=== PATIENT | female | born 1930 | race Caucasian/White ===

== ENCOUNTER → 2016-04-22 | Outpatient (CLI) | payer OTHER ==
[~2016-04-22] MED LIST: ALBUAER19 INH; AMLO5TAB2 PO; ASPEC81 PO; LOSA50TA6 PO; NTRGSL/4 SL; OXYC-88 PO; SERT50TA PO
[2016-04-22 18:09] LABS: BLOOD UREA NITROGEN 18 mg/dl (7-18); BUN/CREATININE RATIO 18.2 (10-20); CALCIUM 9.3 mg/dl (8.5-10.1); CARBON DIOXIDE 28 mmol/L (21-32); CHLORIDE 106 mmol/L (98-107); GLUCOSE 81 mg/dl (70-99); POTASSIUM 4.5 mmol/L (3.5-5.1); SODIUM 142 mmol/L (136-145)
== END | disposition home or self-care (01) ==
LOC: C.LABMFLN 04-25 13:35
PROVIDERS: ATTEND Family Medicine
DX: R39.15 Urgency of urination (principal); R35.0 Frequency of micturition; R30.0 Dysuria; E55.9 Vitamin D deficiency, unspecified

== ENCOUNTER → 2016-05-16 | Outpatient (CLI) | payer OTHER ==
[2016-05-16 18:41] LABS: URINE APPEARANCE CLEAR (CLEAR); URINE BILIRUBIN NEG (NEG); URINE COLOR DK YELLOW; URINE EPITHELIAL CELL AUTO >30 /lpf (0-5); URINE NITRITE NEG (NEG); URINE SPECIFIC GRAVITY 1.026 (1.000-1.030); UROBILINOGEN NEG (NEG); ZZUR CULT IF INDIC CLEAN CATCH NO
[2016-05-16 18:43] LABS: MANUAL MICROSCOPIC REQUIRED? NO; REVIEW REQ? NO
== END | disposition home or self-care (01) ==
LOC: C.LABMFLN 14:46
PROVIDERS: ATTEND Family Medicine
DX: R30.0 Dysuria (principal)

== ENCOUNTER → 2016-07-21 | Outpatient (CLI) | payer OTHER ==
[2016-07-21 18:10] LABS: URINE APPEARANCE CLEAR (CLEAR); URINE BILIRUBIN NEG (NEG); URINE COLOR YELLOW; URINE NITRITE NEG (NEG); URINE SPECIFIC GRAVITY 1.015 (1.000-1.030); UROBILINOGEN NEG (NEG)
[2016-07-21 18:19] LABS: MANUAL MICROSCOPIC REQUIRED? NO; REVIEW REQ? NO
== END | disposition home or self-care (01) ==
LOC: C.LABMFLN 08:52
PROVIDERS: ATTEND Family Medicine
DX: R30.0 Dysuria (principal)

== ENCOUNTER → 2016-10-06 | Outpatient (CLI) | payer OTHER ==
[2016-10-06 18:08] LABS: BLOOD UREA NITROGEN 20 mg/dl (7-18); BUN/CREATININE RATIO 18.3 (10-20); CALCIUM 9.5 mg/dl (8.5-10.1); CARBON DIOXIDE 30 mmol/L (21-32); CHLORIDE 107 mmol/L (98-107); GLUCOSE 84 mg/dl (70-99); POTASSIUM 4.4 mmol/L (3.5-5.1); SODIUM 142 mmol/L (136-145)
== END | disposition home or self-care (01) ==
LOC: C.LABMFLN 16:03
PROVIDERS: ATTEND Family Medicine
DX: I10 Essential (primary) hypertension (principal)

== ENCOUNTER → 2017-01-06 | Outpatient (CLI) | payer OTHER | END | disposition home or self-care (01) | LOC: C.LABMFLN 12:49 | PROVIDERS: ATTEND Family Medicine | DX: R35.0 Frequency of micturition (principal) ==

== ENCOUNTER → 2017-01-25 | Outpatient (CLI) | payer OTHER ==
[2017-01-25 13:24] LABS: URINE APPEARANCE CLEAR (CLEAR); URINE BILIRUBIN NEG (NEG); URINE COLOR YELLOW; URINE EPITHELIAL CELL AUTO >30 /lpf (0-5); URINE NITRITE NEG (NEG); URINE SPECIFIC GRAVITY 1.014 (1.000-1.030); UROBILINOGEN NEG (NEG)
[2017-01-25 13:30] LABS: BLOOD UREA NITROGEN 32 mg/dl (7-18); BUN/CREATININE RATIO 25.4 (10-20); CALCIUM 8.9 mg/dl (8.5-10.1); CARBON DIOXIDE 26 mmol/L (21-32); CHLORIDE 99 mmol/L (98-107); CREATININE 1.25 mg/dl (0.60-1.20); GLUCOSE 93 mg/dl (70-99); POTASSIUM 3.6 mmol/L (3.5-5.1); SODIUM 134 mmol/L (136-145)
[2017-01-25 13:40] LABS: MANUAL MICROSCOPIC REQUIRED? NO; REVIEW REQ? NO
== END | disposition home or self-care (01) ==
LOC: C.LABMFLN 09:00
PROVIDERS: ATTEND Family Medicine
DX: I10 Essential (primary) hypertension (principal); E55.9 Vitamin D deficiency, unspecified; R35.0 Frequency of micturition; N23 Unspecified renal colic

== ENCOUNTER 2017-04-03 16:06 | Emergency (ER) | payer OTHER ==
[~2017-04-03] VITALS: Ht 149.9 cm; Wt 56.0 kg
[2017-04-03 16:17] VITALS: TEMP 36.9; Ht 149.9 cm; Wt 56.0 kg
[2017-04-03 17:18] LABS: BASO % 0.7 %; BASO ABS # 0.03 K/uL (0-0.2); EOS % 1.8 %; EOS ABS # 0.08 K/uL (0-0.5); HEMATOCRIT 35.7 % (37-47); HEMOGLOBIN 11.7 g/dL (12.0-16.0); LYMPH % 44.1 %; LYMPH ABS # 1.97 K/uL (1.2-3.4); MEAN CELL VOLUME 90.8 fL (80-100); MEAN CORPUSCULAR HEMOGLOBIN 29.8 pg (25-34); MEAN CORPUSCULAR HGB CONC 32.8 g/dl (32-36); MEAN PLATELET VOLUME 11.3 fL (7.4-10.4); MONO % 4.7 %; MONO ABS # 0.21 K/uL (0.11-0.59); NEUT % 48.7 %; NEUT ABS # 2.18 K/uL (1.4-6.5); PLATELET COUNT 169 K/uL (130-400); RED CELL DISTRIBUTION WIDTH CV 13.1 % (11.5-14.5); RED CELL DISTRIBUTION WIDTH SD 43.9 fL (36.4-46.3); WHITE BLOOD COUNT 4.47 K/uL (4.8-10.8)
[2017-04-03 17:41] LABS: CALCIUM 9.3 mg/dl (8.5-10.1); CREATININE 1.36 mg/dl (0.60-1.20); POTASSIUM 4.3 mmol/L (3.5-5.1)
[2017-04-03 17:51] VITALS: PULSE 69; O2SAT 100
--- NOTE | 2017-04-03 17:57 | DIAGNOSTIC IMAGING REPORT ---
L KNEE 3 VIEWS CLINICAL HISTORY: L knee pain COMPARISON: None. DISCUSSION: Postsurgical changes involve the distal femur. The bones are osteopenic. 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 There is chondrocalcinosis. There is an old proximal fibular deformity. There are no acute fractures. There are soft tissue calcifications within the anterior soft tissues of the lower leg. IMPRESSION: 1. Postsurgical changes involve the distal femur 2. Osteopenia 3. Degenerative changes with chondrocalcinosis involving the knee 4. No acute fractures Electronically signed by: Sebastian Dobson M.D. 04/03/2017 5:55 PM Dictated Date/Time: 04/03/2017 5:54 PM
--- NOTE | 2017-04-03 17:58 | DIAGNOSTIC IMAGING REPORT ---
L TIBIA/FIBULA 2 VIEWS ROUTINE CLINICAL HISTORY: L clements leaking fluid COMPARISON: None. DISCUSSION: The bones are osteopenic. There are postsurgical changes involve the distal femur. There is an old fracture involving the distal tibia. There are 2 medial malleolar screws. There is a lateral metallic plate fixating an old distal fibular fracture. There are no acute fractures. There is anterior soft tissue edema. There are anterior soft tissue calcifications, likely representing phleboliths or foci of fat necrosis. IMPRESSION: 1. Old posttraumatic and postsurgical change 2. Anterior soft tissue swelling 3. No acute fractures Electronically signed by: Sebastian Dobson M.D. 04/03/2017 5:57 PM Dictated Date/Time: 04/03/2017 5:56 PM
[2017-04-03] MEDS ORDERED: DEXL60CA4 PO (18:25)
--- NOTE | 2017-04-03 18:56 | DIAGNOSTIC IMAGING REPORT ---
ULTRASOUND L VENOUS DOPP LOWER EXT UNILAT CLINICAL HISTORY: Left lower extremity edema COMPARISON STUDY: No previous studies for comparison. FINDINGS: Real-time and color flow Doppler imaging were performed. Flow was seen within the femoral, popliteal and calf veins with no intraluminal thrombus demonstrated. The saphenous vein is patent. There is left lower extremity edema IMPRESSION: No evidence of left lower extremity DVT. Electronically signed by: Sebastian Dobson M.D. 04/03/2017 6:54 PM Dictated Date/Time: 04/03/2017 6:54 PM
[2017-04-03 19:39] VITALS: BP 190/104
--- NOTE | 2017-04-03 22:32 | EMERGENCY ROOM VISIT NOTE ---
History Report prepared by Mira: Jorge Calle Under the Supervision of: Dr. Phil Chacon D.O. First contact with patient: 16:24 Chief Complaint: LEG PAIN,LEG INJURY Stated Complaint: LT LEG W/METAL IN AND SCREWS, FLUID LEAKING OUT History of Present Illness The patient is an 86 year old female who presents to the Emergency Room with complaints of intermittent leakage from her left leg for the past two nights. The patient states that she woke up the last two nights with a wet spot on the bed near her leg. The patient notes that she has metal in her legs after breaking her leg after falling. Pt denies headache, change in vision, cough, runny nose, redness, leg pain, leg swelling, weakness, numbness, abdominal pain , fevers, chest pain, shortness of breath, nausea, vomiting, diarrhea, pain with urination, and melena. Source of History: patient Onset: past two nights Position: leg (left) Quality: other (leakage) Timing: intermittent Associated Symptoms: No fevers, No cough, No chest pain, No SOB, No abdominal pain Review of Systems See HPI for pertinent positives & negatives. A total of 10 systems reviewed and were otherwise negative. Past Medical & Surgical Medical Problems: (1) HTN (hypertension) Family History FH: HTN (hypertension) FH: cancer FH: diabetes mellitus FH: gallbladder disease FH: heart disease Social History Smoking Status: Former Smoker Alcohol Use: none Marital Status: Occupation Status: retired Current/Historical Medications Scheduled Aspirin Enteric Coated (Ecotrin Or Generic *), 81 MG PO DAILY Dexlansoprazole (Dexilant), 60 MG PO DAILY Losartan Potassium (Cozaar), 50 MG PO DAILY Nitroglycerin (Nitrostat), 0.4 MG SL PRN Sertraline (Zoloft), 50 MG PO DAILY Scheduled PRN Albuterol Inhaler (Ventolin Inhaler), 2 PUFFS INH QID PRN Oxycodone/Acetaminophen 10MG/325MG (Oxycodone/Acetaminophen 10MG/325MG), 1 TAB PO Q4H PRN Allergies Coded Allergies: Erythromycin (Verified Allergy, Severe, TONGUE SWELLS, 04/03/17) Chlorpheniramine (Verified Allergy, Mild, UNKNOWN, 04/03/17) Replaces HYDROCODONE/P Phenylephrine (Verified Allergy, Mild, UNKNOWN, 04/03/17) Replaces HYDROCODONE/P Codeine (Verified Allergy, Unknown, TONGUE SWELLS, 04/03/17) Iodinated Contrast Media (Verified Adverse Reaction, Severe, IRREGULAR HEART RATE, 04/03/17) Physical Exam Vital Signs Date Time Temp Pulse Resp B/P (MAP) Pulse Ox O2 Delivery O2 Flow Rate FiO2 04/03/17 19:39 190/104 04/03/17 17:51 69 18 193/84 100 Room Air 04/03/17 16:17 36.9 89 16 183/99 97 Room Air Physical Exam GENERAL: Sitting up in bed, alert, well appearing, well nourished, no distress, non-toxic EYE EXAM: normal conjunctiva. OROPHARYNX: no exudate, no erythema, lips, buccal mucosa, and tongue normal and mucous membranes are moist NECK: supple, no nuchal rigidity, no adenopathy, non-tender LUNGS: Clear to auscultation. Normal chest wall mechanics HEART: no murmurs, S1 normal and S2 normal ABDOMEN: abdomen soft, non-tender, normo-active bowel sounds, no masses, no rebound or guarding. BACK: Back is symmetrical on inspection and there is no deformity, no midline tenderness, no CVA tenderness. SKIN: no rashes and no bruising UPPER EXTREMITIES: upper extremities are grossly normal. LOWER EXTREMITIES: Calves are equal bilaterally. There is a 1cm open laceration seeping clear fluid 6cm cephalad from the ankle. No pitting edema. NEURO EXAM: Normal sensorium, cranial nerves II-XII grossly intact, normal speech, no gross weakness of arms, no gross weakness of legs. Medical Decision & Procedures ER Provider Diagnostic Interpretation: Radiology results as stated below per my review and the radiologist's interpretation: L TIBIA/FIBULA 2 VIEWS ROUTINE CLINICAL HISTORY: L clements leaking fluid COMPARISON: None. DISCUSSION: The bones are osteopenic. There are postsurgical changes involve the distal femur. There is an old fracture involving the distal tibia. There are 2 medial malleolar screws. There is a lateral metallic plate fixating an old distal fibular fracture. There are no acute fractures. There is anterior soft tissue edema. There are anterior soft tissue calcifications, likely representing phleboliths or foci of fat necrosis. IMPRESSION: 1. Old posttraumatic and postsurgical change 2. Anterior soft tissue swelling 3. No acute fractures Electronically signed by: Sebastian Dobson M.D. 04/03/2017 5:57 PM Dictated Date/Time: 04/03/2017 5:56 PM L KNEE 3 VIEWS CLINICAL HISTORY: L knee pain COMPARISON: None. DISCUSSION: Postsurgical changes involve the distal femur. The bones are osteopenic. 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 There is chondrocalcinosis. There is an old proximal fibular deformity. There are no acute fractures. There are soft tissue calcifications within the anterior soft tissues of the lower leg. IMPRESSION: 1. Postsurgical changes involve the distal femur 2. Osteopenia 3. Degenerative changes with chondrocalcinosis involving the knee 4. No acute fractures Electronically signed by: Sebastian Dobson M.D. 04/03/2017 5:55 PM Dictated Date/Time: 04/03/2017 5:54 PM ULTRASOUND L VENOUS DOPP LOWER EXT UNILAT CLINICAL HISTORY: Left lower extremity edema COMPARISON STUDY: No previous studies for comparison. FINDINGS: Real-time and color flow Doppler imaging were performed. Flow was seen within the femoral, popliteal and calf veins with no intraluminal thrombus demonstrated. The saphenous vein is patent. There is left lower extremity edema IMPRESSION: No evidence of left lower extremity DVT. Electronically signed by: Sebastian Dobson M.D. 04/03/2017 6:54 PM Dictated Date/Time: 04/03/2017 6:54 PM Laboratory Results 04/03/17 17:00 Red Blood Count 3.93, Mean Corpuscular Volume 90.8, Mean Corpuscular Hemoglobin 29.8, Mean Corpuscular Hemoglobin Concent 32.8, Mean Platelet Volume 11.3, Neutrophils (%) (Auto) 48.7, Lymphocytes (%) (Auto) 44.1, Monocytes (%) (Auto) 4.7, Eosinophils (%) (Auto) 1.8, Basophils (%) (Auto) 0.7, Neutrophils # (Auto) 2.18, Lymphocytes # (Auto) 1.97, Monocytes # (Auto) 0.21, Eosinophils # (Auto) 0.08, Basophils # (Auto) 0.03 04/03/17 17:00 Test 04/03/17 17:00 White Blood Count 4.47 K/uL (4.8-10.8) Red Blood Count 3.93 M/uL (4.2-5.4) Hemoglobin 11.7 g/dL (12.0-16.0) Hematocrit 35.7 % (37-47) Mean Corpuscular Volume 90.8 fL (80-100) Mean Corpuscular Hemoglobin 29.8 pg (25-34) Mean Corpuscular Hemoglobin Concent 32.8 g/dl (32-36) Platelet Count 169 K/uL (130-400) Mean Platelet Volume 11.3 fL (7.4-10.4) Neutrophils (%) (Auto) 48.7 % Lymphocytes (%) (Auto) 44.1 % Monocytes (%) (Auto) 4.7 % Eosinophils (%) (Auto) 1.8 % Basophils (%) (Auto) 0.7 % Neutrophils # (Auto) 2.18 K/uL (1.4-6.5) Lymphocytes # (Auto) 1.97 K/uL (1.2-3.4) Monocytes # (Auto) 0.21 K/uL (0.11-0.59) Eosinophils # (Auto) 0.08 K/uL (0-0.5) Basophils # (Auto) 0.03 K/uL (0-0.2) RDW Standard Deviation 43.9 fL (36.4-46.3) RDW Coefficient of Variation 13.1 % (11.5-14.5) Immature Granulocyte % (Auto) 0.0 % Immature Granulocyte # (Auto) 0.00 K/uL (0.00-0.02) Anion Gap 5.0 mmol/L (3-11) Est Creatinine Clear Calc Drug Dose 23.5 ml/min Estimated GFR () 41.3 Estimated GFR (Non- 35.6 BUN/Creatinine Ratio 14.1 (10-20) Calcium Level 9.3 mg/dl (8.5-10.1) Pro-B-Type Natriuretic Peptide 1576 pg/ml (0-1800) Laboratory results per my review. ECG Indication: other (leg swelling) Rate (beats per minute): 72 Rhythm: sinus rhythm Findings: Q waves (Septal), no ectopy, other (poor baseline in V6) Change: Patient's EKG interpreted by me. ED Course ED COURSE: Vital signs were reviewed and showed hypertension The patients medical record was reviewed The above diagnostic studies were performed and reviewed. ED treatments and interventions as stated above. 1624: The patient was evaluated in room A2. A complete history and physical examination was performed. 1751: I reevaluated the patient, and she is doing well. 1904: Upon reevaluation, the patient is doing well.I discussed my findings with the patient and she understands and agrees with the treatment plan. Based on the patients age, coexisting illnesses, exam and lab findings the decision to treat as an outpatient was made. The patient remained stable while under my care. The patient appeared well at the time of discharge. Medical Decision Differential diagnosis: Etiologies such as DVT, musculoskeletal, infection, joint effusion, trauma, lymphedema, idiopathic, CHF, as well as others were entertained. Patient is an 86-year-old female who presents to ER for a clear drainage from her left lower extremity. She has a 1 cm opening on her left distal clements which is oozing clear fluid. No signs of infection. CBC all BMP was unremarkable. BNP was normal. Lungs were clear. Duplex of lower extremity was negative. X- rays of the tibia and knee showed no acute fractures. Patient was updated bedside. She was discharged follow-up PCP as an outpatient. She had absolutely no other complaints to suggest that this could be failure. Discussed with Pt concerning signs and symptoms to watch out for. Pt was instructed to follow up with their PCP and discussed with the patient their option to return to the ED at anytime for persistent or worsening symptoms. The appropriate anticipatory guidance and out-patient management, including indications for return to the emergency department, were explained at length to the patient and understood. Medication Reconcilliation Current Medication List: was personally reviewed by me Blood Pressure Screening Patient's blood pressure: Elevated blood pressure Blood pressure disposition: Referred to PCP Impression Primary Impression: Leg edema, left Scribe Attestation The scribe's documentation has been prepared under my direction and personally reviewed by me in its entirety. I confirm that the note above accurately reflects all work, treatment, procedures, and medical decision making performed by me. Departure Information Dispostion Home / Self-Care Referrals Juan Galloway M.D. (PCP) Forms HOME CARE DOCUMENTATION FORM, IMPORTANT VISIT INFORMATION Patient Instructions ED Leg Swelling Bilateral, My [facility] Additional Instructions Please follow up with your primary care doctor with in the next 24 hours. Any worsening of your symptoms, please return to the ED immediately. This includes any fevers greater than 100.4, worsening pain, chest pain, shortness breath, persistent nausea, vomiting, unable to eat or drink, or any other concerning signs or symptoms from your standpoint. Please follow up with your primary care doctor in the next 24-48 hours as stated above. Please keep dressing in place for the next 24 hours.
== END 2017-04-03 19:42 | disposition home or self-care (01) ==
LOC: C.EDB 16:08 → C.EDA 19:42
DX: R60.0 Localized edema (principal); S81.812A Laceration without foreign body, left lower leg, initial encounter; X58.XXXA Exposure to other specified factors, initial encounter; I10 Essential (primary) hypertension; Z96.89 Presence of other specified functional implants; Z79.82 Long term (current) use of aspirin; Z88.1 Allergy status to other antibiotic agents; Z88.8 Allergy status to other drugs, medicaments and biological substances; Z88.6 Allergy status to analgesic agent; Z91.041 Radiographic dye allergy status; Z82.49 Family history of ischemic heart disease and other diseases of the circulatory system; Z83.3 Family history of diabetes mellitus; Z83.79 Family history of other diseases of the digestive system; Z87.891 Personal history of nicotine dependence

== ENCOUNTER → 2017-04-19 | Outpatient (CLI) | payer OTHER ==
[~2017-04-19] MED LIST changes: -AMLO5TAB2 PO; +DEXL60CA4 PO
== END | disposition home or self-care (01) ==
LOC: C.LABMFLN 18:18
PROVIDERS: ATTEND Family Medicine
DX: R35.0 Frequency of micturition (principal)

== ENCOUNTER → 2017-05-19 | Outpatient (CLI) | payer OTHER | END | disposition home or self-care (01) | LOC: C.LABMFLN 16:10 | PROVIDERS: ATTEND Family Medicine | DX: N30.00 Acute cystitis without hematuria (principal) ==

== ENCOUNTER → 2017-06-23 | Outpatient (CLI) | payer OTHER | END | disposition home or self-care (01) | LOC: C.LABMFLN 16:14 | PROVIDERS: ATTEND Family Medicine | DX: N30.00 Acute cystitis without hematuria (principal) ==

== ENCOUNTER → 2017-09-29 | Outpatient (CLI) | payer OTHER ==
[~2017-09-29] MED LIST changes: +OXYC-594 PO; -OXYC-88 PO
[2017-09-29 18:09] LABS: BASO % 0.7 %; BASO ABS # 0.04 K/uL (0-0.2); EOS % 1.7 %; HEMATOCRIT 36.8 % (37-47); HEMOGLOBIN 11.7 g/dL (12.0-16.0); IG# 0.01 K/uL (0.00-0.02); LYMPH % 36.5 %; LYMPH ABS # 2.21 K/uL (1.2-3.4); MEAN CELL VOLUME 91.5 fL (80-100); MEAN CORPUSCULAR HEMOGLOBIN 29.1 pg (25-34); MEAN CORPUSCULAR HGB CONC 31.8 g/dl (32-36); MEAN PLATELET VOLUME 11.9 fL (7.4-10.4); MONO % 5.6 %; MONO ABS # 0.34 K/uL (0.11-0.59); NEUT % 55.3 %; NEUT ABS # 3.36 K/uL (1.4-6.5); PLATELET COUNT 185 K/uL (130-400); RED CELL DISTRIBUTION WIDTH CV 13.8 % (11.5-14.5); WHITE BLOOD COUNT 6.06 K/uL (4.8-10.8)
[2017-09-29 18:44] LABS: ALBUMIN 3.2 gm/dl (3.4-5.0); ALKALINE PHOSPHATASE 66 U/L (45-117); ALT/SGPT 15 U/L (12-78); AST/SGOT 13 U/L (15-37); BLOOD UREA NITROGEN 23 mg/dl (7-18); CALCIUM 8.6 mg/dl (8.5-10.1); CARBON DIOXIDE 27 mmol/L (21-32); CREATININE 1.07 mg/dl (0.60-1.20); GLUCOSE 88 mg/dl (70-99); POTASSIUM 4.8 mmol/L (3.5-5.1); SODIUM 133 mmol/L (136-145); TOTAL PROTEIN 6.2 gm/dl (6.4-8.2)
== END | disposition home or self-care (01) ==
LOC: C.LABMFLN 14:49
PROVIDERS: ATTEND Family Medicine
DX: R63.4 Abnormal weight loss (principal)

== ENCOUNTER 2021-09-12 15:41 | Observation (INO) ==
[2021-09-12] MEDS ORDERED: FAMOTIDINE 20MG IV PUSH 20 MG/5 ML SYR IV STA (16:32)
--- NOTE | 2021-09-12 16:35 | Emergency Department Note ---
History of Present Illness General Chief complaint: Throat Pain Stated complaint: SORE THROAT, FEELS LIKE IT IS CLOSING Time Seen by Provider: 09/12/21 16:20 Source: patient Mode of arrival: ambulatory Limitations: no limitations History of Present Illness Provider complaint: sore throat, trouble swallowing Onset (ago): month(s) 3 Location: neck Maximum Pain Intensity: 7 Treatments prior to arrival: none This is an 89-year-old female presents emergency department due to worsening sore throat and trouble swallowing. She states symptoms are began mildly 2 to 3 months ago and they have slowly gotten worse. Patient states she is able to swallow liquids but has difficulty trying to chew and swallow solids. She sta calvin she feels as though something gets stuck and she has to drink several glasses of water to help it to go down. She states she has a perpetual sore throat but states it feels like it is lower in her throat. She denies any history of thyroid problems. Denies any accompanying trouble breathing. Denies fevers or chills. States she does have a history of GERD, however has not had prior EGD. She states she was seen at [facility] and x-rays were performed and they discharged her. She states there is no conversation regarding follow-up with GI or ENT, no other medications given. Patient states she is a previous smoker. Records from her visit to [facility] were reviewed. Patient had a soft tissue neck x-ray and a chest x-ray, both without acute findings per radiology read. Pt seen during a time of high acuity and national emergency pandemic while wearing PPE. Home Medications Medication Instructions Recorded Confirmed Type aspirin 81 mg tablet,delayed 81 mg PO DAILY 05/28/20 09/12/21 History release nitroglycerin 0.4 mg sublingual 0.4 mg sublingual Q5M PRN chest 10/08/20 09/12/21 Rx tablet (Nitrostat) pain #20 tabs docusate sodium 100 mg capsule 100 mg PO BID PRN Constipation 12/01/20 09/12/21 History fluticasone 250 mcg-salmeterol 50 1 inh inhalation BID #60 ea 03/25/21 09/12/21 Rx mcg/dose blistr powdr for inhalation (Advair Diskus) ropinirole 0.5 mg tablet 0.5 - 1 mg PO HS PRN restless legs 05/21/21 09/12/21 Rx #60 tabs sertraline 50 mg tablet 50 mg PO DAILY #90 tabs 05/21/21 09/12/21 Rx losartan 50 mg tablet 50 mg PO DAILY #90 tabs 06/15/21 09/12/21 Rx acetaminophen 325 mg tablet 975 mg PO Q6H PRN Pain 07/02/21 09/12/21 History dexlansoprazole 60 mg 60 mg PO DAILY PRN NEEDED PER PT 07/02/21 09/12/21 History capsule,biphase delayed release (Dexilant) ondansetron HCl 4 mg tablet 4 mg PO Q8H PRN nausea 07/02/21 09/12/21 History polyethylene glycol 3350 17 17 g PO DAILY PRN constipation 07/02/21 09/12/21 History gram/dose oral powder (Miralax) primidone 50 mg tablet 50 mg PO DAILY 07/02/21 09/12/21 History sulfamethoxazole 800 1 tab PO BID 7 days #14 tabs 09/08/21 09/12/21 Rx mg-trimethoprim 160 mg tablet amlodipine 5 mg tablet 5 mg PO DAILY 09/12/21 09/12/21 History carboxymethylcellulose sodium 1 % 1 drp ophthalmic (eye) TID PRN Dry 09/12/21 09/12/21 History eye drops (Artificial Tears Eyes (carboxymethylcellulose)) esomeprazole magnesium 40 mg 40 mg PO DAILY PRN 09/12/21 09/12/21 History capsule,delayed release (Nexium) INDIGESTION/HEARTBURN oxycodone-acetaminophen 7.5 mg-325 1 tab PO Q4H PRN pain 09/12/21 09/12/21 History mg tablet (Percocet) Allergies Allergy/AdvReac Type Severity Reaction Status Date / Time erythromycin base Allergy Severe TONGUE Verified 09/12/21 17:15 SWELLS codeine Allergy Intermediate TONGUE Verified 09/12/21 17:15 SWELLS chlorpheniramine Allergy Mild UNKNOWN Verified 09/12/21 17:15 phenylephrine Allergy Mild UNKNOWN Verified 09/12/21 17:15 hydrocodone Allergy Unknown ON [facility] MED Verified 09/12/21 17:15 LIST Iodinated Contrast Media AdvReac Severe IRREGULAR Verified 09/12/21 17:15 HEART RATE topiramate [From Topamax] AdvReac Severe throat Verified 09/12/21 17:15 closing up Past Med/Surg History Medical History Allergic rhinitis Asthma Benign essential hypertension CKD (chronic kidney disease) stage 3, GFR 30-59 ml/min Depression Diastolic heart failure Essential tremor Gait disorder GERD without esophagitis History of ovarian cancer Lumbar spinal stenosis Opiate dependence Osteoporosis Recurrent cystitis Restless legs syndrome Venous insufficiency Vitamin D deficiency Weight loss Surgical History History of appendectomy Hx of cholecystectomy S/P exploratory laparotomy S/P small bowel resection S/P total abdominal hysterectomy and bilateral salpingo-oophorectomy Family History Mother Cardiovascular disease Hypertension Father Cardiovascular disease Hypertension Acute myocardial infarction Brother Hypertension Diabetes Son Hypertension Diabetes Daughter Hypertension Diabetes Unknown FHx: cancer Social History Smoking Status: Former smoker Tobacco Type: Cigarettes Age Started Using Tobacco: 21; Age Quit Using Tobacco: 42; Second Hand Exposure: No; Hx Alcohol Use: No Hx Substance Use: No Preferred Language: Swedish Communication Ability: Effective Visual Impairment: No Limitations Hearing Ability: Normal [employer]visor [employer] P[employer] Required: No Beliefs That Will Affect Care: None marital status: Current Living Situation: Alone Current Living Situation Comment: Son stays with her current occupational status: retired Feels Safe at Home: Yes Childhood Exposure to Second-Hand Smoke: No Dental Care, Regularly: No Physical Activity Frequency: Does not Exercise Seatbelt Use: always Sunscreen Use: No (not in the sun) Assistive Devices: Denture - Upper, Denture - Lower, Glasses and Wheelchair Review of Systems A total of 10 systems reviewed and were otherwise negative All systems reviewed & are unremarkable except as noted in HPI & below Physical Exam Vital Signs Vital Signs - 24 hr 09/12/21 15:44 09/12/21 15:48 09/12/21 17:42 Temperature 36.9 C Temperature Source Temporal Artery Scan Pulse Rate 59 L Pulse Rate [Finger] 64 78 Pulse Rhythm [Finger] Regular Pulse Strength [Finger] Normal Respiratory Rate 20 16 14 Respiratory Effort / Characteristics Non-Labored Non-Labored Spontaneous Non-Labored Spontaneous Respiratory Depth Normal Normal Normal Respiratory Pattern Regular Blood Pressure 102/57 L Blood Pressure [Right Arm] 148/72 H 168/82 H Blood Pressure Mean 72 Blood Pressure Mean [Right Arm] 97 110 Pulse Oximetry 97 93 94 Oxygen Delivery Method Room Air Sepsis Recent Fever Within 48 Hours No Sepsis New/Unexplained Change in Mental Status N/A Sepsis Action Taken by Nursing No Action Required 09/12/21 19:29 Temperature Temperature Source Pulse Rate Pulse Rate [Finger] 69 Pulse Rhythm [Finger] Pulse Strength [Finger] Respiratory Rate 17 Respiratory Effort / Characteristics Respiratory Depth Respiratory Pattern Blood Pressure Blood Pressure [Right Arm] 135/84 Blood Pressure Mean Blood Pressure Mean [Right Arm] 101 Pulse Oximetry 94 Oxygen Delivery Method Room Air Sepsis Recent Fever Within 48 Hours Sepsis New/Unexplained Change in Mental Status Sepsis Action Taken by Nursing GENERAL: alert, well appearing, well nourished, no distress, non-toxic EYE EXAM: normal conjunctiva, PERRL and EOM's grossly intact OROPHARYNX: no exudate, no erythema, lips, buccal mucosa, and tongue normal and mucous membranes are moist, no blood or exudate noted in the posterior oropharynx, uvula midline, no mucocutaneous lesion NECK: supple, no nuchal rigidity, no adenopathy, non-tender, no palpable thyromegaly, no stridor LUNGS: Clear to auscultation. Normal chest wall mechanics, no w/r/r HEART: no murmurs, S1 normal and S2 normal ABDOMEN: abdomen soft, non-tender, normo-active bowel sounds, no masses, no rebound or guarding. BACK: Back is symmetrical on inspection and there is no deformity, no midline tenderness, no CVA tenderness. SKIN: no rashes and no bruising UPPER EXTREMITIES: upper extremities are grossly normal. FROM, nml pulses b/l. LOWER EXTREMITIES: No pitting edema. FROM, nml pulses b/l. NEURO EXAM: Normal sensorium, cranial nerves II-XII grossly intact, normal speech, no gross weakness of arms, no gross weakness of legs. Gross sensation intact. Course Course 1914: Patient updated on results. I did recommend admission given her hyponatremia, dysphagia and dysphonia. Patient refused stating she needs to go home because she cares for animals. Patient's grandson is no longer bedside and she did not know where he went. I did check the waiting room and he was not present. Patient then stated she needed to use the restroom and needed a wheelchair. I asked if I could assist her and she said no she does not walk. Patient states she typically uses a wheelchair at home. I called the grandson at the number listed and the line was busy. 1929: I again tried to contact the grandson at the number listed and it was again busy. I then tried to call the other contact listed Lana, a friend. There was no answer at that line either. Patient's grandson has not yet returned to the room. 1951: Grandson now back at bedside. Both grandson and myself sat with the patient and discussed our concerns and benefits to admission at this time. Patient most concerned about her pets at home. Grandson is able to care for the pets tomorrow. Administered Medications Fluticasone/Vilanterol (Fluticasone/Vilanterol 200/25mcg 14 Puffs/Inhaler) 1 pu ffs INH DAILY MARISSA Stop: 10/12/21 23:14 Last Admin: 09/12/21 23:36 Dose: Not Given Documented By: AB Pantoprazole Sodium 40 mg/ (Syringe) 10 mls @ 5 mls/min IV BID MARISSA Stop: 10/12/21 22:47 Last Admin: 09/12/21 23:50 Dose: 5 mls/min Documented By: AB Lactated Ringer's (Lr) 1,000 mls @ 80 mls/hr IV .[id number] MARISSA Stop: 09/13/21 11:17 Last Admin: 09/12/21 23:21 Dose: 80 mls/hr Documented By: AB Oxycodone/Acetaminophen (Oxycodone/Apap 7.5/325mg Tab) 1 tab PO Q4H PRN PRN Reason: pain Stop: 09/26/21 22:47 Last Admin: 09/12/21 23:15 Dose: 1 tab Documented By: AB Discontinued Medications Diphenhydramine HCl (Diphenhydramine 50 Mg/Ml Vial) 12.5 mg IV NOW STA Stop: 09/12/21 16:47 Last Admin: 09/12/21 16:59 Dose: 12.5 mg Documented By: OAM Sodium Chloride (Nss 1000ml) 1,000 mls @ 125 mls/hr IV .Q8H MARISSA Stop: 10/12/21 16:44 Last Infusion: 09/12/21 23:24 Dose: 0 mls/hr Documented By: Admin: 09/12/21 16:59 Dose: 125 mls/hr Documented By: ATIF Famotidine (Pepcid 20mg Iv Push) 20 mg in 5 mls @ 2.5 mls/min IV NOW STA Stop: 09/12/21 16:33 Last Admin: 09/12/21 16:59 Dose: 2.5 mls/min Documented By: ATIF Ioversol (Optiray 320 100ml) 94 ml IV ONCE ONE Stop: 09/12/21 18:52 Last Admin: 09/12/21 18:52 Dose: 94 ml Documented By: MEI Methylprednisolone (Methylprednisolone 40 Mg/Ml Vial) 40 mg IV NOW STA Stop: 09/12/21 16:47 Last Admin: 09/12/21 16:59 Dose: 40 mg Documented By: ATIF Ropinirole HCl (Ropinirole Hcl 0.25 Mg Tablet) 0.5 mg PO NOW STA Stop: 09/12/21 19:09 Last Admin: 09/12/21 19:28 Dose: 0.5 mg Documented By: RACHAEL Fluticasone/Salmeterol (Fluticasone/Salmeterol 250/50 (Advair) 14 Puff/1 Inhaler) 1 puffs INH BID MARISSA Stop: 10/12/21 22:47 Last Admin: 09/13/21 00:15 Dose: Not Given Documented By: Medical Decision Making Differential Diagnosis Differential diagnosis includes etiologies such as viral syndrome, tonsillitis, streptococcal pharyngitis, mononucleosis, peritonsillar abscess, retropharyngeal abscess, otitis, pneumonia, influenza, as well as others were entertained. Medical Records Attestation: I reviewed the patient's medical records. Home Medications Current Medication List: was personally reviewed by me Laboratory Data Attestation: I reviewed the patient's lab results. Result diagrams: 09/12/21 16:40 09/12/21 17:29 Lab Results 09/12/21 09/12/21 09/12/21 Range/Units 16:40 16:40 16:40 WBC 5.52 (4.8-10.8) K/ul RBC 4.17 (3.93-5.22) M/uL Hgb 12.7 (12.0-16.0) g/dl Hct 38.0 (34.1-44.9) % MCV 91.1 (80.0-100.0) fL MCH 30.5 (25.0-34.0) pg MCHC 33.4 (32.0-36.0) g/dL RDW Std Deviation 41.0 (36.4-46.3) fL RDW Coeff of Soy 12.2 (11.5-14.5) % Plt Count 149 (130-400) K/uL MPV 11.6 (9.4-12.3) fL Immature Gran % (Auto) 0.2 % Neut % (Auto) 60.0 % Lymph % (Auto) 32.4 % [place] % (Auto) 5.4 % Eos % (Auto) 1.3 % Baso % (Auto) 0.7 % Neut # (Auto) 3.31 (1.4-6.5) K/uL Lymph # (Auto) 1.79 (1.2-3.4) K/uL [place] # (Auto) 0.30 (0.24-0.82) K/uL Eos # (Auto) 0.07 (0-0.50) K/uL Baso # (Auto) 0.04 (0-0.2) K/uL Immature Gran # (Auto) 0.01 (0.00-0.02) K/uL Sodium Cancelled Potassium Cancelled Chloride Cancelled Carbon Dioxide Cancelled Anion Gap Cancelled BUN Cancelled Creatinine Cancelled Est Cr Clr Drug Dosing Cancelled Est GFR ( Amer) Cancelled Est GFR (Non-Af Amer) Cancelled BUN/Creatinine Ratio Cancelled Glucose Cancelled Osmolality (280-300) mOsm/kg Calcium Cancelled Phosphorus (2.5-4.9) mg/dl Magnesium Cancelled Total Bilirubin Cancelled AST Cancelled ALT Cancelled Alkaline Phosphatase Cancelled Troponin I High Sens Cancelled Total Protein Cancelled Albumin Cancelled Globulin Cancelled Albumin/Globulin Ratio Cancelled Lipase Cancelled TSH Cancelled SARS-CoV-2, RNA, NAAT (NEGATIVE) 09/12/21 09/12/21 09/12/21 Range/Units 17:29 17:29 17:29 WBC (4.8-10.8) K/ul RBC (3.93-5.22) M/uL Hgb (12.0-16.0) g/dl Hct (34.1-44.9) % MCV (80.0-100.0) fL MCH (25.0-34.0) pg MCHC (32.0-36.0) g/dL RDW Std Deviation (36.4-46.3) fL RDW Coeff of Soy (11.5-14.5) % Plt Count (130-400) K/uL MPV (9.4-12.3) fL Immature Gran % (Auto) % Neut % (Auto) % Lymph % (Auto) % [place] % (Auto) % Eos % (Auto) % Baso % (Auto) % Neut # (Auto) (1.4-6.5) K/uL Lymph # (Auto) (1.2-3.4) K/uL [place] # (Auto) (0.24-0.82) K/uL Eos # (Auto) (0-0.50) K/uL Baso # (Auto) (0-0.2) K/uL Immature Gran # (Auto) (0.00-0.02) K/uL Sodium 127 L Potassium 4.2 Chloride 95 L Carbon Dioxide 25 Anion Gap 7 BUN 18 Creatinine 1.08 Est Cr Clr Drug Dosing 26.6 Est GFR ( Amer) 52.7 Est GFR (Non-Af Amer) 45.5 BUN/Creatinine Ratio 16.7 Glucose 74 Osmolality 268 L (280-300) mOsm/kg Calcium 9.4 Phosphorus (2.5-4.9) mg/dl Magnesium 1.6 L Total Bilirubin 0.6 AST 19 ALT 9 Alkaline Phosphatase 47 Troponin I High Sens 14.4 H Total Protein 6.8 Albumin 4.1 Globulin 2.7 Albumin/Globulin Ratio 1.5 Lipase 44 TSH 1.291 SARS-CoV-2, RNA, NAAT (NEGATIVE) 09/12/21 09/12/21 Range/Units 17:29 19:55 WBC (4.8-10.8) K/ul RBC (3.93-5.22) M/uL Hgb (12.0-16.0) g/dl Hct (34.1-44.9) % MCV (80.0-100.0) fL MCH (25.0-34.0) pg MCHC (32.0-36.0) g/dL RDW Std Deviation (36.4-46.3) fL RDW Coeff of Soy (11.5-14.5) % Plt Count (130-400) K/uL MPV (9.4-12.3) fL Immature Gran % (Auto) % Neut % (Auto) % Lymph % (Auto) % [place] % (Auto) % Eos % (Auto) % Baso % (Auto) % Neut # (Auto) (1.4-6.5) K/uL Lymph # (Auto) (1.2-3.4) K/uL [place] # (Auto) (0.24-0.82) K/uL Eos # (Auto) (0-0.50) K/uL Baso # (Auto) (0-0.2) K/uL Immature Gran # (Auto) (0.00-0.02) K/uL Sodium Potassium Chloride Carbon Dioxide Anion Gap BUN Creatinine Est Cr Clr Drug Dosing Est GFR ( Amer) Est GFR (Non-Af Amer) BUN/Creatinine Ratio Glucose Osmolality (280-300) mOsm/kg Calcium Phosphorus 2.6 (2.5-4.9) mg/dl Magnesium Total Bilirubin AST ALT Alkaline Phosphatase Troponin I High Sens Total Protein Albumin Globulin Albumin/Globulin Ratio Lipase TSH SARS-CoV-2, RNA, NAAT NEGATIVE (NEGATIVE) Imaging Data Radiologist's Impression: Soft Tissue Neck CT 09/12/21 16:32 CT SCAN OF THE NECK WITH IV CONTRAST CLINICAL HISTORY: Sore throat. Dysphagia. Dysphonia. COMPARISON STUDY: CT of the cervical spine dated 12/25/2011. Chest CT dated 12/27/2011. TECHNIQUE: Following the IV administration of 94 cc of Optiray 320, CT scan of the soft tissues of the neck was performed from the skull base to the upper chest. Images are reviewed in the axial, sagittal, and coronal planes. IV contrast was administered without complication. A dose lowering technique was utilized adhering to the principles of ALARA. CT DOSE: 228.85 mGy.cm FINDINGS: Pharynx: The pharyngeal soft tissues are grossly unremarkable. The pharyngeal airway is patent. There is no evidence of mass lesion. The vocal cords are symmetric. The parapharyngeal fat is well maintained. The pr evertebral/retropharyngeal soft tissues are within normal limits. The epiglottis is normal. Lymphadenopathy: No cervical lymphadenopathy is seen Thyroid: Mildly enlarged and heterogeneous. Salivary glands: The parotid and submandibular glands are within normal limits. Brain parenchyma: The visualized brain parenchyma at the skull base is normal in appearance noting age-related involutional change. Vascular structures: There is atherosclerotic calcification of the thoracic aorta and carotid bulbs. The carotid arteries and jugular veins are patent bilaterally. Skeletal structures: The skeletal structures are osteopenic. Imaged portions of the calvarium at the skull base are within normal limits. The cervical spine appears intact noting advanced multilevel spondylosis. There is evidence of previous anterior cervical spinal fusion. No lytic or blastic lesion is seen. Degenerative change is noted in the shoulders evidence of previous surgery on the right. Orbits: The bony orbits are intact. Orbital contents are normal as visualized noting bilateral ocular lens implants. Sinuses and mastoids: Retention cysts in the maxillary antra and measure up to 2.3 cm. The remaining paranasal sinuses are clear. The mastoid air cells are well pneumatized. Lung apices: A 6 mm groundglass nodule is noted at the left apex image #[id number]. This was not seen in 2012. A 3 mm left upper lobe nodule on image #[id number] is unchanged dating back to 2012. The upper lobe lung parenchyma is otherwise clear as imaged. Dentition: There are no remaining maxillary teeth and presumed dentures are in place. Dental caries are noted throughout the remaining mandibular teeth. No periapical lucency is identified. IMPRESSION: 1. No acute abnormality is identified. 2. There is a 6 mm groundglass nodule at the left apex which was not clearly seen in 2012. This may be inflammatory. A 6 month follow-up chest CT is recommended for reassessment. 3. There are dental caries noted within the remaining mandibular teeth. Nonemergent follow-up with dentistry is recommended. ACT 112: Negative or not required by law. Electronically signed by: Andrez Carter M.D. 09/12/2021 7:10 PM ECG Data Attestation: I personally reviewed and interpreted this ECG as follows: Indication: + weakness Rate (beats per minute): 64 Rhythm: + normal sinus ECG Intervals/blocks: + Normal QRS and + Normal QT ECG Coy: + Normal ECG ST segments: + Normal ST segments MDM Narrative An order was placed for continuous cardiac monitoring. The monitor shows a rate of _66__ with _normal sinus_ rhythm. This is an 89-year-old female who presents due to 3 weeks of worsening dysphagia , sore throat, dysphonia. Patient previously seen and evaluated at [facility] and did have reassuring x-rays. Patient had labs drawn and sent was sent for CT imaging. Patient found to be hyponatremia, likely from decreased oral intake due to symptoms. Patient was started on gentle IV fluid rehydration. CT of the neck was reassuring. No obvious thyromegaly. Due to concern for worsening symptoms and need for additional evaluation, case discussed with hospitalist for additional evaluation and management. Impression & Plan Dysphagia, Hyponatremia, Dysphonia, Sore throat Discharge Plan Visit Data Chief Complaint: Throat Pain Stated Complaint: SORE THROAT, FEELS LIKE IT IS CLOSING ED Provider: Marisela Candelario Discharge Problem: Dysphagia, Hyponatremia, Dysphonia, Sore throat Patient Disposition: Admitted As Inpatient Condition: Fair Discharge Instructions Interventions: ED Discharge Assessment Last Done: 09/12/21 22:18
[2021-09-12] MEDS ORDERED: SODIUM CHLORIDE 0.9% 1000ML 1,000 ML IV SCH (16:45)
[2021-09-12] MEDS ORDERED: diphenhydrAMINE 50 MG/ML VIAL IV STA (16:46)
[2021-09-12 16:56] LABS: Basophils # (auto) 0.04 K/uL (0-0.2); Basophils % (auto) 0.7 %; Eosinophils # (auto) 0.07 K/uL (0-0.50); Eosinophils % (auto) 1.3 %; Hemoglobin 12.7 g/dl (12.0-16.0); Immature Granulocytes # (auto) 0.01 K/uL (0.00-0.02); Immature Granulocytes % (auto) 0.2 %; Lymphocytes # (auto) 1.79 K/uL (1.2-3.4); Lymphocytes % (auto) 32.4 %; Mean Corpuscular Hemoglobin 30.5 pg (25.0-34.0); Mean Corpuscular Hgb Conc 33.4 g/dL (32.0-36.0); Mean Corpuscular Volume 91.1 fL (80.0-100.0); Mean Platelet Volume 11.6 fL (9.4-12.3); Monocytes % (auto) 5.4 %; Neutrophils # (auto) 3.31 K/uL (1.4-6.5); Platelet Count 149 K/uL (130-400); RDW Coefficient of Variation 12.2 % (11.5-14.5); Red Blood Count 4.17 M/uL (3.93-5.22); White Blood Count 5.52 K/ul (4.8-10.8)
[2021-09-12 18:04] LABS: Troponin I High Sensitivity 14.4 pg/ml (0-14)
[2021-09-12 18:09] LABS: Albumin Globulin Ratio 1.5 (0.9-2); Albumin Level 4.1 gm/dl (3.4-5.0); BUN Creatinine Ratio 16.7 (10-20); Bilirubin,Total 0.6 mg/dl (0.2-1.0); Calcium 9.4 mg/dl (8.5-10.1); Creatinine Clr Calc Pharmacy 26.6 ml/min; Est GFR (African American) 52.7 ml/min; Est GFR (Non-African American) 45.5 ml/min; Globulin 2.7 gm/dl (2.5-4.0); Magnesium 1.6 mg/dl (1.7-2.4); Potassium 4.2 mmol/L (3.5-5.1); Total Protein 6.8 gm/dl (6.0-8.3)
[2021-09-12] MEDS ORDERED: OPTIRAY 320 100ml IV ONE (18:51)
[2021-09-12] MEDS ORDERED: rOPINIRole HCL 0.25 MG TABLET PO STA (19:08)
--- NOTE | 2021-09-12 19:12 | CT Scan Report ---
CT SCAN OF THE NECK WITH IV CONTRAST CLINICAL HISTORY: Sore throat. Dysphagia. Dysphonia. COMPARISON STUDY: CT of the cervical spine dated 12/25/2011. Chest CT dated 12/27/2011. TECHNIQUE: Following the IV administration of 94 cc of Optiray 320, CT scan of the soft tissues of e neck was performed from the skull base to the upper chest. Images are reviewed in the axial, sagitt al, and coronal planes. IV contrast was administered without complication. A dose lowering techniqu e was utilized adhering to the principles of ALARA. CT DOSE: 228.85 mGy.cm FINDINGS: Pharynx: The pharyngeal soft tissues are grossly unremarkable. The pharyngeal airway is patent. There is no evidence of mass lesion. The vocal cords are symmetric. The parapharyngeal fat is well maintai afshin. The prevertebral/retropharyngeal soft tissues are within normal limits. The epiglottis is normal . Lymphadenopathy: No cervical lymphadenopathy is seen Thyroid: Mildly enlarged and heterogeneous. Salivary glands: The parotid and submandibular glands are within normal limits. Brain parenchyma: The visualized brain parenchyma at the skull base is normal in appearance noting ag e-related involutional change. Vascular structures: There is atherosclerotic calcification of the thoracic aorta and carotid bulbs. The carotid arteries and jugular veins are patent bilaterally. Skeletal structures: The skeletal structures are osteopenic. Imaged portions of the calvarium at the skull base are within normal limits. The cervical spine appears intact noting advanced multilevel spo ndylosis. There is evidence of previous anterior cervical spinal fusion. No lytic or blastic lesion i s seen. Degenerative change is noted in the shoulders evidence of previous surgery on the right. Orbits: The bony orbits are intact. Orbital contents are normal as visualized noting bilateral ocular lens implants. Sinuses and mastoids: Retention cysts in the maxillary antra and measure up to 2.3 cm. The remaining paranasal sinuses are clear. The mastoid air cells are well pneumatized. Lung apices: A 6 mm groundglass nodule is noted at the left apex image #[id number]. This was not seen in 201 2. A 3 mm left upper lobe nodule on image #[id number] is unchanged dating back to 2011. The upper lobe lung parenchyma is otherwise clear as imaged. Dentition: There are no remaining maxillary teeth and presumed dentures are in place. Dental caries a re noted throughout the remaining mandibular teeth. No periapical lucency is identified. IMPRESSION: 1. No acute abnormality is identified. 2. There is a 6 mm groundglass nodule at the left apex which was not clearly seen in 2012. This may b e inflammatory. A 6 month follow-up chest CT is recommended for reassessment. 3. There are dental caries noted within the remaining mandibular teeth. Nonemergent follow-up with de ntistry is recommended. ACT 112: Negative or not required by law. Electronically signed by: Andrez Carter M.D. 09/12/2021 7:10 PM
--- NOTE | 2021-09-12 20:38 | History & Physical Report ---
Date of Service September 12, 2021 Assessment & Plan (1) Dysphagia: Plan: 89yo female presents with 2-3 months of progressive dysphagia without odynophagia. Patient reports needing to drink multiple glasses of water with her meal to assist with swallowing. She denies oral lesions or thrush - she is on inhaled Advair. Uncertain about weight loss. She has history of GERD for which she takes PRN Nexium and Dexlansoprazole. -Admit to medical -Barium swallow study -Aspiration precautions -Minced/moist diet as tolerated -GI consultation appreciated re: possible EGD -Hoarseness was discussed with PCP during a visit on 07/19/21 - patient was referred to ENT at [facility] (2) Hyponatremia: Plan: [id number]. Patient with low sodium in the past - typically 130's. Ddx to include decreased oral intake, possibly secondary to increased water intake with meals -Check urine and serum osmolality -Check urine Na -Chemistry in AM (3) Benign essential hypertension: Plan: Chronic. Blood pressure adequately controlled at present, 135/85 -Continue Amlodipine 5mg po daily -Continue Losartan 50mg po daily (4) CKD (chronic kidney disease) stage 3, GFR 30-59 ml/min: Plan: Renal function stable -Monitor (5) Restless legs syndrome: Plan: Chronic. Well controlled on medication -Continue Ropinirole 1mg po qHS PRN (6) Depression: Plan: Chronic. Stable on medications -Continue Sertraline 50mg po daily (7) GERD without esophagitis: Plan: Chronic. -Will give Protonix 40mg IV BID for now -GI consultation appreciated (8) Essential tremor: Plan: Chronic. Stable on medications -Continue Primidone 50mg po daily History of Present Illness Chief Complaint: dysphagia Primary Care Provider: Juan Galloway MD Hui Ybarra is an 89yo female with history of HTN, CKD, GERD, Depressio and CHF presenting with 2-3 months of progressive dysphagia. Patient reports her appetite is intact. She is able to chew and swallow food but then she feels that it gets stuck in the upper portion of her throat. She reports having to drink multiple glasses of water with each meal to get her food down. She has occasional nausea with regurgitation of partially undigested food. She denies odynophagia. Denies ulcers, sores or thrush in her mouth or throat. She does report some hoarseness of her voice as well. Patient denies fever, chills, chest pain, cough, SOB. Denies abdominal pain, nausea or diarrhea. No additional complaints at this time. In the ER she is afebrile, HD stable. NAD. Labs as below, significant for hyponatremia with Wd=880 Patient has never had an EGD performed. She was seen at [facility] for this complaint several days ago and had negative x-rays of the neck. She was then sent home. ER course: Benadryl 12.5mg IV, Pepcid 20mg IV, Solumedrol 40mg IV Allergies Allergy/AdvReac Type Severity Reaction Status Date / Time erythromycin base Allergy Severe TONGUE Verified 09/12/21 17:15 SWELLS codeine Allergy Intermediate TONGUE Verified 09/12/21 17:15 SWELLS chlorpheniramine Allergy Mild UNKNOWN Verified 09/12/21 17:15 phenylephrine Allergy Mild UNKNOWN Verified 09/12/21 17:15 hydrocodone Allergy Unknown ON [facility] MED Verified 09/12/21 17:15 LIST Iodinated Contrast Media AdvReac Severe IRREGULAR Verified 09/12/21 17:15 HEART RATE topiramate [From Topamax] AdvReac Severe throat Verified 09/12/21 17:15 closing up Home Medications Medication Instructions Recorded Confirmed Type aspirin 81 mg tablet,delayed 81 mg PO DAILY 05/28/20 09/12/21 History release nitroglycerin 0.4 mg sublingual 0.4 mg sublingual Q5M PRN chest 10/08/20 09/12/21 Rx tablet (Nitrostat) pain #20 tabs docusate sodium 100 mg capsule 100 mg PO BID PRN Constipation 12/01/20 09/12/21 History fluticasone 250 mcg-salmeterol 50 1 inh inhalation BID #60 ea 03/25/21 09/12/21 Rx mcg/dose blistr powdr for inhalation (Advair Diskus) ropinirole 0.5 mg tablet 0.5 - 1 mg PO HS PRN restless legs 05/21/21 09/12/21 Rx #60 tabs sertraline 50 mg tablet 50 mg PO DAILY #90 tabs 05/21/21 09/12/21 Rx losartan 50 mg tablet 50 mg PO DAILY #90 tabs 06/15/21 09/12/21 Rx acetaminophen 325 mg tablet 975 mg PO Q6H PRN Pain 07/02/21 09/12/21 History dexlansoprazole 60 mg 60 mg PO DAILY PRN NEEDED PER PT 07/02/21 09/12/21 History capsule,biphase delayed release (Dexilant) ondansetron HCl 4 mg tablet 4 mg PO Q8H PRN nausea 07/02/21 09/12/21 History polyethylene glycol 3350 17 17 g PO DAILY PRN constipation 07/02/21 09/12/21 History gram/dose oral powder (Miralax) primidone 50 mg tablet 50 mg PO DAILY 07/02/21 09/12/21 History sulfamethoxazole 800 1 tab PO BID 7 days #14 tabs 09/08/21 09/12/21 Rx mg-trimethoprim 160 mg tablet amlodipine 5 mg tablet 5 mg PO DAILY 09/12/21 09/12/21 History carboxymethylcellulose sodium 1 % 1 drp ophthalmic (eye) TID PRN Dry 09/12/21 09/12/21 History eye drops (Artificial Tears Eyes (carboxymethylcellulose)) esomeprazole magnesium 40 mg 40 mg PO DAILY PRN 09/12/21 09/12/21 History capsule,delayed release (Nexium) INDIGESTION/HEARTBURN oxycodone-acetaminophen 7.5 mg-325 1 tab PO Q4H PRN pain 09/12/21 09/12/21 History mg tablet (Percocet) Past Med/Surg History Medical History Allergic rhinitis Asthma Benign essential hypertension CKD (chronic kidney disease) stage 3, GFR 30-59 ml/min Depression Diastolic heart failure Essential tremor Gait disorder GERD without esophagitis History of ovarian cancer Lumbar spinal stenosis Opiate dependence Osteoporosis Recurrent cystitis Restless legs syndrome Venous insufficiency Vitamin D deficiency Weight loss Surgical History History of appendectomy Hx of cholecystectomy S/P exploratory laparotomy S/P small bowel resection S/P total abdominal hysterectomy and bilateral salpingo-oophorectomy Family History Mother Cardiovascular disease Hypertension Father Cardiovascular disease Hypertension Acute myocardial infarction Brother Hypertension Diabetes Son Hypertension Diabetes Daughter Hypertension Diabetes Unknown FHx: cancer Social History Smoking Status: Former smoker Tobacco Type: Cigarettes Age Started Using Tobacco: 21; Age Quit Using Tobacco: 42; Second Hand Exposure: No; Hx Alcohol Use: No Hx Substance Use: No Preferred Language: Bulgarian Communication Ability: Effective Visual Impairment: No Limitations Hearing Ability: Normal [employer] Driving Required: No marital status: Current Living Situation: Alone Current Living Situation Comment: Son stays with her current occupational status: retired Feels Safe at Home: Yes Childhood Exposure to Second-Hand Smoke: No Dental Care, Regularly: No Physical Activity Frequency: Does not Exercise Seatbelt Use: always Sunscreen Use: No (not in the sun) Review of Systems Review of Systems: All systems reviewed & are unremarkable except as noted in HPI & below Physical Exam Physical Exam: General: patient resting comfortably, NAD, non-toxic in appearance, AA&O x 4 Skin: warm, dry, intact, no rashes or lesions HEENT: NC/AT, PERRL, EOMI, anicteric sclera, conjunctiva without injection, external ear normal to inspection and nontender, nares patent, moist mucus membranes, poor dentition, no oropharyngeal lesions, neck supple, trachea midline, no LAD, no thyromegaly, no JVD Heart: +S1/S2, regular, no m/r/g Lungs: equal air entry bilaterally, no rales/rhonchi/wheezes Abd: +BS, soft, NT/ND, no masses/organomegaly/ascites Ext: warm, 2+ pulses in UE/LE bilaterally, no clubbing/cyanosis or edema Neuro: nonfocal, patient AA&O x 4, speech intact, no facial droop, moving all extremities on command with equal strength 5/5 Results & Data Results & Data ([facility]) Vital Signs (Past 12 Hours) Vital Signs Temp Pulse Pulse Resp BP BP Pulse Ox 09/12/21 19:29 69 17 135/84 94 09/12/21 17:42 78 14 168/82 H 94 09/12/21 15:48 64 16 148/72 H 93 09/12/21 15:44 36.9 C 59 L 20 102/57 L 97 O2 Del Method 07/17/22 19:29 Room Air 09/12/21 17:42 09/12/21 15:48 Room Air 09/12/21 15:44 Laboratory Results Laboratory Results WBC 5.52 K/ul (4.8-10.8) 09/12/21 16:40 RBC 4.17 M/uL (3.93-5.22) 09/12/21 16:40 Hgb 12.7 g/dl (12.0-16.0) 09/12/21 16:40 Hct 38.0 % (34.1-44.9) 09/12/21 16:40 MCV 91.1 fL (80.0-100.0) 09/12/21 16:40 MCH 30.5 pg (25.0-34.0) 09/12/21 16:40 MCHC 33.4 g/dL (32.0-36.0) 09/12/21 16:40 RDW Std Deviation 41.0 fL (36.4-46.3) 09/12/21 16:40 RDW Coeff of Soy 12.2 % (11.5-14.5) 09/12/21 16:40 Plt Count 149 K/uL (130-400) 09/12/21 16:40 MPV 11.6 fL (9.4-12.3) 09/12/21 16:40 Immature Gran % (Auto) 0.2 % 09/12/21 16:40 Neut % (Auto) 60.0 % 09/12/21 16:40 Lymph % (Auto) 32.4 % 09/12/21 16:40 [place] % (Auto) 5.4 % 09/12/21 16:40 Eos % (Auto) 1.3 % 09/12/21 16:40 Baso % (Auto) 0.7 % 09/12/21 16:40 Neut # (Auto) 3.31 K/uL (1.4-6.5) 09/12/21 16:40 Lymph # (Auto) 1.79 K/uL (1.2-3.4) 09/12/21 16:40 [place] # (Auto) 0.30 K/uL (0.24-0.82) 09/12/21 16:40 Eos # (Auto) 0.07 K/uL (0-0.50) 09/12/21 16:40 Baso # (Auto) 0.04 K/uL (0-0.2) 09/12/21 16:40 Immature Gran # (Auto) 0.01 K/uL (0.00-0.02) 09/12/21 16:40 Sodium 127 mmol/L (136-145) L 09/12/21 17: Potassium 4.2 mmol/L (3.5-5.1) 09/12/21 17: Chloride 95 mmol/L (98-107) L 09/12/21 17: Carbon Dioxide 25 mmol/L (21-32) 09/12/21 17: Anion Gap 7 (3-11) 09/12/21: BUN 18 mg/dl (6-23) 09/12/21: Creatinine 1.08 mg/dl (0.6-1.2) 09/12/21 17: Est Cr Clr Drug Dosing 26.6 ml/min 09/12/21 17: Est GFR ( Amer) 52.7 ml/min 09/12/21: Est GFR (Non-Af Amer) 45.5 ml/min 09/12/21 17: BUN/Creatinine Ratio 16.7 (10-20) 09/12/21: Glucose 74 mg/dl (70-99(Fasting)) 09/12/21: Calcium 9.4 mg/dl (8.5-10.1) 09/12/21: Magnesium 1.6 mg/dl (1.7-2.4) L 09/12/21: Total Bilirubin 0.6 mg/dl (0.2-1.0) 09/12/21 17: AST 19 U/L (13-39) 09/12/21 17: ALT 9 U/L (7-52) 09/12/21: Alkaline Phosphatase 47 U/L (34-104) 09/12/21: Troponin I High Sens 14.4 pg/ml (0-14) H 09/12/21: Total Protein 6.8 gm/dl (6.0-8.3) 09/12/21: Albumin 4.1 gm/dl (3.4-5.0) 09/12/21 17:29 Globulin 2.7 gm/dl (2.5-4.0) 09/12/21 17:29 Albumin/Globulin Ratio 1.5 (0.9-2) 09/12/21 17:29 Lipase 44 U/L (11-82) 09/12/21 17:29 TSH 1.291 uIu/ml (0.300-4.500) 09/12/21 17:29 SARS-CoV-2, RNA, NAAT NEGATIVE (NEGATIVE) 09/12/21 19:55 Impressions Soft Tissue Neck CT 09/12/21 16:32 CT SCAN OF THE NECK WITH IV CONTRAST CLINICAL HISTORY: Sore throat. Dysphagia. Dysphonia. COMPARISON STUDY: CT of the cervical spine dated 12/25/2011. Chest CT dated 12/27/2011. TECHNIQUE: Following the IV administration of 94 cc of Optiray 320, CT scan of the soft tissues of the neck was performed from the skull base to the upper chest. Images are reviewed in the axial, sagittal, and coronal planes. IV contrast was administered without complication. A dose lowering technique was utilized adhering to the principles of ALARA. CT DOSE: 228.85 mGy.cm FINDINGS: Pharynx: The pharyngeal soft tissues are grossly unremarkable. The pharyngeal airway is patent. There is no evidence of mass lesion. The vocal cords are symmetric. The parapharyngeal fat is well maintained. The prevertebral/retro pharyngeal soft tissues are within normal limits. The epiglottis is normal. Lymphadenopathy: No cervical lymphadenopathy is seen Thyroid: Mildly enlarged and heterogeneous. Salivary glands: The parotid and submandibular glands are within normal limits. Brain parenchyma: The visualized brain parenchyma at the skull base is normal in appearance noting age-related involutional change. Vascular structures: There is atherosclerotic calcification of the thoracic aorta and carotid bulbs. The carotid arteries and jugular veins are patent bilaterally. Skeletal structures: The skeletal structures are osteopenic. Imaged portions of the calvarium at the skull base are within normal limits. The cervical spine appears intact noting advanced multilevel spondylosis. There is evidence of previous anterior cervical spinal fusion. No lytic or blastic lesion is seen. Degenerative change is noted in the shoulders evidence of previous surgery on the right. Orbits: The bony orbits are intact. Orbital contents are normal as visualized noting bilateral ocular lens implants. Sinuses and mastoids: Retention cysts in the maxillary antra and measure up to 2.3 cm. The remaining paranasal sinuses are clear. The mastoid air cells are well pneumatized. Lung apices: A 6 mm groundglass nodule is noted at the left apex image #[id number]. This was not seen in 2012. A 3 mm left upper lobe nodule on image #[id number] is unchanged dating back to 2012. The upper lobe lung parenchyma is otherwise clear as imaged. Dentition: There are no remaining maxillary teeth and presumed dentures are in place. Dental caries are noted throughout the remaining mandibular teeth. No periapical lucency is identified. IMPRESSION: 1. No acute abnormality is identified. 2. There is a 6 mm groundglass nodule at the left apex which was not clearly seen in 2012. This may be inflammatory. A 6 month follow-up chest CT is recommended for reassessment. 3. There are dental caries noted within the remaining mandibular teeth. Nonemergent follow-up with dentistry is recommended. ACT 112: Negative or not required by law. Electronically signed by: Andrez Carter M.D. 09/12/2021 7:10 PM PG Care Time/CCT Total # of Minutes Spent Total Time Spent with Patient: Total time spent is greater than 50% in coordination of care (as documented) at patient's floor/unit and/or counseling patient: Coding Level of Care Code 26490 Initial Inpt Care Lvl 3 Diagnoses Dysphagia R13.10 Hyponatremia E87.1 Benign essential hypertension I10 CKD (chronic kidney disease) stage 3, GFR 30-59 ml/min N18.3 Restless legs syndrome G25.81 Depression F32.9 GERD without esophagitis K21.9 Essential tremor G25.0
[2021-09-12] MEDS ORDERED: LACTATED RINGER'S 1,000 ML IV SCH (22:48)
[2021-09-12] MEDS ORDERED: POLYETHYLENE (MIRALAX) 17 GM PACK PO PRN (22:48)
[2021-09-12] MEDS ORDERED: rOPINIRole HCL 1 MG TABLET PO PRN (22:48)
[2021-09-12] MEDS ORDERED: ONDANSETRON INJ 2 MG/ML 2 ML VIAL IV PRN (22:48)
[2021-09-12] MEDS ORDERED: ACETAMINOPHEN 325 MG TAB PO PRN (22:48)
[2021-09-12] MEDS ORDERED: FLUTICASONE/SALMETEROL 250/50 (ADVAIR) 14 PUFF/1 INHALER INH SCH (22:48)
[2021-09-12] MEDS ORDERED: DOCUSATE SODIUM 100 MG CAP PO PRN (22:48)
[2021-09-12] MEDS: oxyCODONE/APAP 7.5/325MG TAB PO PRN (23:15)
[2021-09-12] MEDS: FLUTICASONE/VILANTEROL 200/25MCG 14 PUFFS/INHALER INH SCH ×2 (23:35→23:36)
[2021-09-12] MEDS: PANTOprazole 40 MG in SYRINGE 0 ML IV SCH (23:50)
[2021-09-13] MEDS: oxyCODONE/APAP 7.5/325MG TAB PO PRN ×3 (03:42→19:33)
[2021-09-13] MEDS ORDERED: ACETAMINOPHEN 1,000 MG/100 ML VIAL IV STA ×2 (03:50→03:53)
[2021-09-13] MEDS ORDERED: ACETAMINOPHEN 500 MG TAB PO PRN (03:51)
[2021-09-13] MEDS ORDERED: ACETAMINOPHEN 1,000 MG/100 ML VIAL IV PRN (03:55)
[2021-09-13] MEDS ORDERED: HYDROmorphone INJ 0.5 MG/0.5 ML SYR IV STA (03:55)
--- NOTE | 2021-09-13 08:05 | Hospitalist Progress Note ---
Date of Service September 13, 2021 Assessment & Plan (1) Dysphagia: (2) Hyponatremia: (3) Benign essential hypertension: (4) CKD (chronic kidney disease) stage 3, GFR 30-59 ml/min: (5) Restless legs syndrome: (6) Depression: (7) GERD without esophagitis: (8) Essential tremor: Plan Hui Ybarra is an 89 y/o female with history of HTN, CKD, GERD, Depression and CHF presenting with 2-3 months of progressive dysphagia, clinically stable awaiting EGD. In the ER she is afebrile, HD stable. NAD. Labs as below, significant for hyponatremia with [id number] #Dysphagia 89yo female presents with 2-3 months of progressive dysphagia without odynophagia. Patient reports needing to drink multiple glasses of water with her meal to assist with swallowing. She denies oral lesions or thrush - she is on inhaled Advair. Uncertain about weight loss. She has history of GERD for which she takes PRN Nexium and Dexlansoprazole. GI consult, appreciate recs - EGD [] Aspiration precautions [] NPO at midnight for EGD tomorrow -Hoarseness was discussed with PCP during a visit on 07/19/21 - patient was referred to ENT at [facility] #Hyponatremia Na 127 on admission. Patient 132 today. Patient with low sodium in the past - typically 130's. Likely in the setting of carb heavy diet and poor po intake. No further workup necessary. [] AM BMP #HTN Blood pressure adequately controlled at present, 135/85 [] Continue Amlodipine 5mg po daily; Losartan 50mg po daily #CKD 3 Renal function stable [] monitor #Depression Stable on sertraline 50 mg QD #RLS Well-controlled with Ropinirole 1 mg qHS PRN #GERD Patient on Nexium PRN and Dexlansoprazole. [] Protonix 40mg IV BID for now [] GI consult - appreciate recs #Essential tremor Stable on Primidone 50mg po daily Admission and Anticipated Discharge Date Admission Date: September 12, 2021 Supervising Physician Co-Signing Physician Notes I personally examined the patient and verified all long points of history and exam, discussed case, and agree with decision making with Dr Garcia feeling OK, wants to eat, but after discussions understands restricted diet pe nding EGD vitals noted nad heent nc at mmm breathing unlabored no accessory muscles good effort skin no rashes no pallor or icterus neuro no focal deficits dysphagia - for EGD tomorrow otherwise as above Subjective Ms. Ybarra notes continued difficulty with swallowing and feeling like something is stuck in her throat. She reports that she needs to drink lots of water to get through a meal at home. The patient notes that sometimes she throws up food. She also states having constipation - BM every 2-3 days. Review of Systems Review of Systems: See subjective/HPI Physical Exam Physical Exam: General: patient resting comfortably, NAD, non-toxic in appearance, AA&O x 4 Skin: warm, dry, intact, no rashes or lesions HEENT: NC/AT, PERRL, EOMI, anicteric sclera, conjunctiva without injection, external ear normal to inspection and nontender, nares patent, moist mucus membranes, poor dentition, no oropharyngeal lesions, neck supple, trachea midline, no LAD, no thyromegaly, no JVD Heart: +S1/S2, regular, no m/r/g Lungs: equal air entry bilaterally, no rales/rhonchi/wheezes Abd: +BS, soft, NT/ND, no masses/organomegaly/ascites Ext: warm, 2+ pulses in UE/LE bilaterally, no clubbing/cyanosis or edema Neuro: nonfocal, patient AA&O x 4, speech intact, no facial droop, moving all extremities on command with equal strength 5/5 Results & Data Results & Data ([facility]) Vital Signs (Past 12 Hours) Vital Signs Temp Pulse Resp BP BP Pulse Ox O2 Del Method 09/13/21 07:10 36.5 C 68 12 158/78 H 97 Room Air 09/12/21 23:28 Room Air 09/12/21 22:52 36.8 C 63 18 146/82 H 95 Room Air 09/12/21 22:52 36.8 C 63 18 146/82 H 95 Room Air 09/12/21 21:00 62 16 117/84 94 Room Air Laboratory Results 09/13/21 09/13/21 09/12/21 Range/Units 08:07 08:07 19:55 WBC 4.51 L (4.8-10.8) K/ul RBC 4.16 (3.93-5.22) M/uL Hgb 12.7 (12.0-16.0) g/dl Hct 38.2 (34.1-44.9) % MCV 91.8 (80.0-100.0) fL MCH 30.5 (25.0-34.0) pg MCHC 33.2 (32.0-36.0) g/dL RDW Std Deviation 41.1 (36.4-46.3) fL RDW Coeff of Soy 12.1 (11.5-14.5) % Plt Count 163 (130-400) K/uL MPV 12.0 (9.4-12.3) fL Immature Gran % (Auto) 0.4 % Neut % (Auto) 71.9 % Lymph % (Auto) 25.1 % [place] % (Auto) 2.4 % Eos % (Auto) 0.0 % Baso % (Auto) 0.2 % Neut # (Auto) 3.24 (1.4-6.5) K/uL Lymph # (Auto) 1.13 L (1.2-3.4) K/uL [place] # (Auto) 0.11 L (0.24-0.82) K/uL Eos # (Auto) 0.00 (0-0.50) K/uL Baso # (Auto) 0.01 (0-0.2) K/uL Immature Gran # (Auto) 0.02 (0.00-0.02) K/uL Sodium 132 L Potassium 5.1 D Chloride 101 Carbon Dioxide 26 Anion Gap 5 BUN 17 Creatinine 1.06 Est Cr Clr Drug Dosing 27.1 Est GFR ( Amer) 53.9 Est GFR (Non-Af Amer) 46.5 BUN/Creatinine Ratio 16.0 Glucose 98 Osmolality (280-300) mOsm/kg Calcium 9.2 Phosphorus (2.5-4.9) mg/dl Magnesium Total Bilirubin AST ALT Alkaline Phosphatase Troponin I High Sens Total Protein Albumin Globulin Albumin/Globulin Ratio Lipase TSH SARS-CoV-2, RNA, NAAT NEGATIVE (NEGATIVE) 09/12/21 09/12/21 09/12/21 Range/Units 17:29 17:29 17:29 WBC (4.8-10.8) K/ul RBC (3.93-5.22) M/uL Hgb (12.0-16.0) g/dl Hct (34.1-44.9) % MCV (80.0-100.0) fL MCH (25.0-34.0) pg MCHC (32.0-36.0) g/dL RDW Std Deviation (36.4-46.3) fL RDW Coeff of Soy (11.5-14.5) % Plt Count (130-400) K/uL MPV (9.4-12.3) fL Immature Gran % (Auto) % Neut % (Auto) % Lymph % (Auto) % [place] % (Auto) % Eos % (Auto) % Baso % (Auto) % Neut # (Auto) (1.4-6.5) K/uL Lymph # (Auto) (1.2-3.4) K/uL [place] # (Auto) (0.24-0.82) K/uL Eos # (Auto) (0-0.50) K/uL Baso # (Auto) (0-0.2) K/uL Immature Gran # (Auto) (0.00-0.02) K/uL Sodium 127 L Potassium 4.2 Chloride 95 L Carbon Dioxide 25 Anion Gap 7 BUN 18 Creatinine 1.08 Est Cr Clr Drug Dosing 26.6 Est GFR ( Amer) 52.7 Est GFR (Non-Af Amer) 45.5 BUN/Creatinine Ratio 16.7 Glucose 74 Osmolality 268 L (280-300) mOsm/kg Calcium 9.4 Phosphorus 2.6 (2.5-4.9) mg/dl Magnesium 1.6 L Total Bilirubin 0.6 AST 19 ALT 9 Alkaline Phosphatase 47 Troponin I High Sens 14.4 H Total Protein 6.8 Albumin 4.1 Globulin 2.7 Albumin/Globulin Ratio 1.5 Lipase 44 TSH SARS-CoV-2, RNA, NAAT (NEGATIVE) 09/12/21 09/12/21 09/12/21 Range/Units 17:29 16:40 16:40 WBC (4.8-10.8) K/ul RBC (3.93-5.22) M/uL Hgb (12.0-16.0) g/dl Hct (34.1-44.9) % MCV (80.0-100.0) fL MCH (25.0-34.0) pg MCHC (32.0-36.0) g/dL RDW Std Deviation (36.4-46.3) fL RDW Coeff of Soy (11.5-14.5) % Plt Count (130-400) K/uL MPV (9.4-12.3) fL Immature Gran % (Auto) % Neut % (Auto) % Lymph % (Auto) % [place] % (Auto) % Eos % (Auto) % Baso % (Auto) % Neut # (Auto) (1.4-6.5) K/uL Lymph # (Auto) (1.2-3.4) K/uL [place] # (Auto) (0.24-0.82) K/uL Eos # (Auto) (0-0.50) K/uL Baso # (Auto) (0-0.2) K/uL Immature Gran # (Auto) (0.00-0.02) K/uL Sodium Cancelled Potassium Cancelled Chloride Cancelled Carbon Dioxide Cancelled Anion Gap Cancelled BUN Cancelled Creatinine Cancelled Est Cr Clr Drug Dosing Cancelled Est GFR ( Amer) Cancelled Est GFR (Non-Af Amer) Cancelled BUN/Creatinine Ratio Cancelled Glucose Cancelled Osmolality (280-300) mOsm/kg Calcium Cancelled Phosphorus (2.5-4.9) mg/dl Magnesium Cancelled Total Bilirubin Cancelled AST Cancelled ALT Cancelled Alkaline Phosphatase Cancelled Troponin I High Sens Cancelled Total Protein Cancelled Albumin Cancelled Globulin Cancelled Albumin/Globulin Ratio Cancelled Lipase Cancelled TSH 1.291 Cancelled SARS-CoV-2, RNA, NAAT (NEGATIVE) 09/12/21 Range/Units 16:40 WBC 5.52 (4.8-10.8) K/ul RBC 4.17 (3.93-5.22) M/uL Hgb 12.7 (12.0-16.0) g/dl Hct 38.0 (34.1-44.9) % MCV 91.1 (80.0-100.0) fL MCH 30.5 (25.0-34.0) pg MCHC 33.4 (32.0-36.0) g/dL RDW Std Deviation 41.0 (36.4-46.3) fL RDW Coeff of Soy 12.2 (11.5-14.5) % Plt Count 149 (130-400) K/uL MPV 11.6 (9.4-12.3) fL Immature Gran % (Auto) 0.2 % Neut % (Auto) 60.0 % Lymph % (Auto) 32.4 % [place] % (Auto) 5.4 % Eos % (Auto) 1.3 % Baso % (Auto) 0.7 % Neut # (Auto) 3.31 (1.4-6.5) K/uL Lymph # (Auto) 1.79 (1.2-3.4) K/uL [place] # (Auto) 0.30 (0.24-0.82) K/uL Eos # (Auto) 0.07 (0-0.50) K/uL Baso # (Auto) 0.04 (0-0.2) K/uL Immature Gran # (Auto) 0.01 (0.00-0.02) K/uL Sodium Potassium Chloride Carbon Dioxide Anion Gap BUN Creatinine Est Cr Clr Drug Dosing Est GFR ( Amer) Est GFR (Non-Af Amer) BUN/Creatinine Ratio Glucose Osmolality (280-300) mOsm/kg Calcium Phosphorus (2.5-4.9) mg/dl Magnesium Total Bilirubin AST ALT Alkaline Phosphatase Troponin I High Sens Total Protein Albumin Globulin Albumin/Globulin Ratio Lipase TSH SARS-CoV-2, RNA, NAAT (NEGATIVE) Diagnostic Findings Soft Tissue CT Neck 09/12 FINDINGS: Pharynx: The pharyngeal soft tissues are grossly unremarkable. The pharyngeal airway is patent. There is no evidence of mass lesion. The vocal cords are symmetric. The parapharyngeal fat is well maintained. The prevertebral/retropharyngeal soft tissues are within normal limits. The epiglottis is normal. Lymphadenopathy: No cervical lymphadenopathy is seen Thyroid: Mildly enlarged and heterogeneous. Salivary glands: The parotid and submandibular glands are within normal limits. Brain parenchyma: The visualized brain parenchyma at the skull base is normal in appearance noting age-related involutional change. Vascular structures: There is atherosclerotic calcification of the thoracic aorta and carotid bulbs. The carotid arteries and jugular veins are patent bilaterally. Skeletal structures: The skeletal structures are osteopenic. Imaged portions of the calvarium at the skull base are within normal limits. The cervical spine appears intact noting advanced multilevel spondylosis. There is evidence of previous anterior cervical spinal fusion. No lytic or blastic lesion is seen. Degenerative change is noted in the shoulders evidence of previous surgery on the right. Orbits: The bony orbits are intact. Orbital contents are normal as visualized noting bilateral ocular lens implants. Sinuses and mastoids: Retention cysts in the maxillary antra and measure up to 2.3 cm. The remaining paranasal sinuses are clear. The mastoid air cells are well pneumatized. Lung apices: A 6 mm groundglass nodule is noted at the left apex image #[id number]. This was not seen in 2012. A 3 mm left upper lobe nodule on image #[id number] is unchanged dating back to 2012. The upper lobe lung parenchyma is otherwise clear as imaged. Dentition: There are no remaining maxillary teeth and presumed dentures are in place. Dental caries are noted throughout the remaining mandibular teeth. No periapical lucency is identified. IMPRESSION: 1. No acute abnormality is identified. 2. There is a 6 mm groundglass nodule at the left apex which was not clearly seen in 2012. This may be inflammatory. A 6 month follow-up chest CT is recommended for reassessment. 3. There are dental caries noted within the remaining mandibular teeth. Nonemergent follow-up with dentistry is recommended. Resident Activity Tracking Resident Involvement: Resident Care Provided Care Provided: Adult [facility]
[2021-09-13] MEDS: LOSARTAN POTASSIUM 50 MG TAB PO SCH (08:44)
[2021-09-13] MEDS: PANTOprazole 40 MG in SYRINGE 0 ML IV SCH (08:44)
[2021-09-13] MEDS: amLODIPine BESYLATE 5 MG TAB PO SCH (08:44)
[2021-09-13] MEDS: FLUTICASONE/VILANTEROL 200/25MCG 14 PUFFS/INHALER INH SCH (08:44)
[2021-09-13] MEDS: PRIMIDONE 50 MG TAB PO SCH (08:44)
[2021-09-13] MEDS: SERTRALINE HCL 50 MG TABLET PO SCH (08:45)
[2021-09-13] MEDS ORDERED: ASPIRIN 81 MG ECTAB PO SCH (09:00)
[2021-09-13 09:19] LABS: Hematocrit (blood only) 38.2 % (34.1-44.9); Hemoglobin 12.7 g/dl (12.0-16.0); Mean Corpuscular Hemoglobin 30.5 pg (25.0-34.0); Mean Corpuscular Hgb Conc 33.2 g/dL (32.0-36.0); Mean Corpuscular Volume 91.8 fL (80.0-100.0); Platelet Count 163 K/uL (130-400); RDW Coefficient of Variation 12.1 % (11.5-14.5); RDW Standard Deviation 41.1 fL (36.4-46.3); Red Blood Count 4.16 M/uL (3.93-5.22); White Blood Count 4.51 K/ul (4.8-10.8)
[2021-09-13 09:56] LABS: Calcium 9.2 mg/dl (8.5-10.1); Creatinine Clr Calc Pharmacy 27.1 ml/min; Est GFR (African American) 53.9 ml/min; Est GFR (Non-African American) 46.5 ml/min; Potassium 5.1 mmol/L (3.5-5.1)
[2021-09-13 10:27] LABS: Basophils # (auto) 0.01 K/uL (0-0.2); Basophils % (auto) 0.2 %; Immature Granulocytes # (auto) 0.02 K/uL (0.00-0.02); Immature Granulocytes % (auto) 0.4 %; Lymphocytes # (auto) 1.13 K/uL (1.2-3.4); Lymphocytes % (auto) 25.1 %; Monocytes # (auto) 0.11 K/uL (0.24-0.82); Monocytes % (auto) 2.4 %; Neutrophils # (auto) 3.24 K/uL (1.4-6.5); Neutrophils % (auto) 71.9 %
--- NOTE | 2021-09-13 10:40 | Gastrointestinal Consultation ---
Date of Consultation September 13, 2021 Assessment & Plan (1) Dysphagia: 89 year old female with progressive dysphagia, hoarseness. DDX discussed including ring, stricture, EOE, esophagitis, dysmotility, lesion etc NPO after midnight, tentative plan for EGD Monday pending endoscopy unit availability Continue PPI Supervising Physician Co-Signing Physician Notes I have seen and examined the patient with LIYA Peña whose note reflects our findings and plan. Eugenia reports solid food dysphagia for several months. Suggest continued use of PPI. She will need an EGD to further evaluate either as outpatient or tomorrow as inpatient. History of Present Illness Reason for Consultation: dysphagia Requesting Physician: Arturo Attending Physician: Phil Morris DO History of Present Illness 89 year old female with history of HTN, CKD, GERD, Depression and CHF presenting with 2-3 months of progressive dysphagia. GI was asked to evaluate. Pt notes that about 2/3 months ago started to have sensation of solids sticking. This progressed and she notes that with all attempted PO intake that is solid she has sensation sticking. This is relieved by drinking a lot of liquid. No issues with liquids alone. Denies abd pain. No nausea or vomiting. Denies GERD. She does however report change in voice and hoarseness. No weight loss. No fever, chills, CP, SOB. Allergies Allergy/AdvReac Type Severity Reaction Status Date / Time erythromycin base Allergy Severe TONGUE Verified 09/12/21 17:15 SWELLS codeine Allergy Intermediate TONGUE Verified 09/12/21 17:15 SWELLS chlorpheniramine Allergy Mild UNKNOWN Verified 09/12/21 17:15 phenylephrine Allergy Mild UNKNOWN Verified 09/12/21 17:15 hydrocodone Allergy Unknown ON [facility] MED Verified 09/12/21 17:15 LIST Iodinated Contrast Media AdvReac Severe IRREGULAR Verified 09/12/21 17:15 HEART RATE topiramate [From Topamax] AdvReac Severe throat Verified 09/12/21 17:15 closing up Home Medications Medication Instructions Recorded Confirmed Type aspirin 81 mg tablet,delayed 81 mg PO DAILY 05/28/20 09/12/21 History release nitroglycerin 0.4 mg sublingual 0.4 mg sublingual Q5M PRN chest 10/08/20 09/12/21 Rx tablet (Nitrostat) pain #20 tabs docusate sodium 100 mg capsule 100 mg PO BID PRN Constipation 12/01/20 09/12/21 History fluticasone 250 mcg-salmeterol 50 1 inh inhalation BID #60 ea 03/25/21 09/12/21 Rx mcg/dose blistr powdr for inhalation (Advair Diskus) ropinirole 0.5 mg tablet 0.5 - 1 mg PO HS PRN restless legs 05/21/21 09/12/21 Rx #60 tabs sertraline 50 mg tablet 50 mg PO DAILY #90 tabs 05/21/21 09/12/21 Rx losartan 50 mg tablet 50 mg PO DAILY #90 tabs 06/15/21 09/12/21 Rx acetaminophen 325 mg tablet 975 mg PO Q6H PRN Pain 07/02/21 09/12/21 History dexlansoprazole 60 mg 60 mg PO DAILY PRN NEEDED PER PT 07/02/21 09/12/21 History capsule,biphase delayed release (Dexilant) ondansetron HCl 4 mg tablet 4 mg PO Q8H PRN nausea 07/02/21 09/12/21 History polyethylene glycol 3350 17 17 g PO DAILY PRN constipation 07/02/21 09/12/21 History gram/dose oral powder (Miralax) primidone 50 mg tablet 50 mg PO DAILY 07/02/21 09/12/21 History sulfamethoxazole 800 1 tab PO BID 7 days #14 tabs 09/08/21 09/12/21 Rx mg-trimethoprim 160 mg tablet amlodipine 5 mg tablet 5 mg PO DAILY 09/12/21 09/12/21 History carboxymethylcellulose sodium 1 % 1 drp ophthalmic (eye) TID PRN Dry 09/12/21 09/12/21 History eye drops (Artificial Tears Eyes (carboxymethylcellulose)) esomeprazole magnesium 40 mg 40 mg PO DAILY PRN 09/12/21 09/12/21 History capsule,delayed release (Nexium) INDIGESTION/HEARTBURN oxycodone-acetaminophen 7.5 mg-325 1 tab PO Q4H PRN pain 09/12/21 09/12/21 History mg tablet (Percocet) Patient History Medical History Allergic rhinitis Asthma Benign essential hypertension CKD (chronic kidney disease) stage 3, GFR 30-59 ml/min Depression Diastolic heart failure Essential tremor Gait disorder GERD without esophagitis History of ovarian cancer Lumbar spinal stenosis Opiate dependence Osteoporosis Recurrent cystitis Restless legs syndrome Venous insufficiency Vitamin D deficiency Weight loss Surgical History History of appendectomy Hx of cholecystectomy S/P exploratory laparotomy S/P small bowel resection S/P total abdominal hysterectomy and bilateral salpingo-oophorectomy Family History Mother Cardiovascular disease Hypertension Father Cardiovascular disease Hypertension Acute myocardial infarction Brother Hypertension Diabetes Son Hypertension Diabetes Daughter Hypertension Diabetes Unknown FHx: cancer Social History Smoking Status: Former smoker Tobacco Type: Cigarettes Age Started Using Tobacco: 21; Age Quit Using Tobacco: 42; Second Hand Exposure: No; Hx Alcohol Use: No Hx Substance Use: No Preferred Language: Tristanian Communication Ability: Effective Visual Impairment: No Limitations Hearing Ability: Normal 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 Beliefs That Will Affect Care: None marital status: / Current Living Situation: Alone Current Living Situation Comment: Son stays with her current occupational status: retired How many Children do You have: 1 Feels Safe at Home: Yes Childhood Exposure to Second-Hand Smoke: No Dental Care, Regularly: No Physical Activity Frequency: Does not Exercise Seatbelt Use: always Sunscreen Use: No (not in the sun) Assistive Devices: Wheelchair Review of Systems Review of Systems: All systems reviewed & are unremarkable except as noted in HPI & below Physical Exam Constitutional: WD/WN, vitals as above Respiratory: normal respiratory effort, lungs clear to auscultation Cardiovascular: Rate/Rhythm: regular rate and regular rhythm Gastrointestinal (Abdomen): normal bowel sounds, soft, nontender, no hepatosplenomegaly Skin: no rashes, warm and dry Results & Data ([facility]) Vital Signs (Past 12 Hours) Vital Signs Temp Pulse Resp BP Pulse Ox O2 Del Method 09/13/21 07:10 36.5 C 68 12 158/78 H 97 Room Air 09/12/21 23:28 Room Air 09/12/21 22:52 36.8 C 63 18 146/82 H 95 Room Air 09/12/21 22:52 36.8 C 63 18 146/82 H 95 Room Air Laboratory Results 09/13/21 09/13/21 09/12/21 Range/Units 08:07 08:07 19:55 WBC 4.51 L (4.8-10.8) K/ul RBC 4.16 (3.93-5.22) M/uL Hgb 12.7 (12.0-16.0) g/dl Hct 38.2 (34.1-44.9) % MCV 91.8 (80.0-100.0) fL MCH 30.5 (25.0-34.0) pg MCHC 33.2 (32.0-36.0) g/dL RDW Std Deviation 41.1 (36.4-46.3) fL RDW Coeff of Soy 12.1 (11.5-14.5) % Plt Count 163 (130-400) K/uL MPV 12.0 (9.4-12.3) fL Immature Gran % (Auto) 0.4 % Neut % (Auto) 71.9 % Lymph % (Auto) 25.1 % [place] % (Auto) 2.4 % Eos % (Auto) 0.0 % Baso % (Auto) 0.2 % Neut # (Auto) 3.24 (1.4-6.5) K/uL Lymph # (Auto) 1.13 L (1.2-3.4) K/uL [place] # (Auto) 0.11 L (0.24-0.82) K/uL Eos # (Auto) 0.00 (0-0.50) K/uL Baso # (Auto) 0.01 (0-0.2) K/uL Immature Gran # (Auto) 0.02 (0.00-0.02) K/uL Sodium 132 L Potassium 5.1 D Chloride 101 Carbon Dioxide 26 Anion Gap 5 BUN 17 Creatinine 1.06 Est Cr Clr Drug Dosing 27.1 Est GFR ( Amer) 53.9 Est GFR (Non-Af Amer) 46.5 BUN/Creatinine Ratio 16.0 Glucose 98 Osmolality (280-300) mOsm/kg Calcium 9.2 Phosphorus (2.5-4.9) mg/dl Magnesium Total Bilirubin AST ALT Alkaline Phosphatase Troponin I High Sens Total Protein Albumin Globulin Albumin/Globulin Ratio Lipase TSH SARS-CoV-2, RNA, NAAT NEGATIVE (NEGATIVE) 09/12/21 09/12/21 09/12/21 Range/Units 17:29 17:29 17:29 WBC (4.8-10.8) K/ul RBC (3.93-5.22) M/uL Hgb (12.0-16.0) g/dl Hct (34.1-44.9) % MCV (80.0-100.0) fL MCH (25.0-34.0) pg MCHC (32.0-36.0) g/dL RDW Std Deviation (36.4-46.3) fL RDW Coeff of Soy (11.5-14.5) % Plt Count (130-400) K/uL MPV (9.4-12.3) fL Immature Gran % (Auto) % Neut % (Auto) % Lymph % (Auto) % [place] % (Auto) % Eos % (Auto) % Baso % (Auto) % Neut # (Auto) (1.4-6.5) K/uL Lymph # (Auto) (1.2-3.4) K/uL [place] # (Auto) (0.24-0.82) K/uL Eos # (Auto) (0-0.50) K/uL Baso # (Auto) (0-0.2) K/uL Immature Gran # (Auto) (0.00-0.02) K/uL Sodium 127 L Potassium 4.2 Chloride 95 L Carbon Dioxide 25 Anion Gap 7 BUN 18 Creatinine 1.08 Est Cr Clr Drug Dosing 26.6 Est GFR ( Amer) 52.7 Est GFR (Non-Af Amer) 45.5 BUN/Creatinine Ratio 16.7 Glucose 74 Osmolality 268 L (280-300) mOsm/kg Calcium 9.4 Phosphorus 2.6 (2.5-4.9) mg/dl Magnesium 1.6 L Total Bilirubin 0.6 AST 19 ALT 9 Alkaline Phosphatase 47 Troponin I High Sens 14.4 H Total Protein 6.8 Albumin 4.1 Globulin 2.7 Albumin/Globulin Ratio 1.5 Lipase 44 TSH SARS-CoV-2, RNA, NAAT (NEGATIVE) 09/12/21 09/12/21 09/12/21 Range/Units 17:29 16:40 16:40 WBC (4.8-10.8) K/ul RBC (3.93-5.22) M/uL Hgb (12.0-16.0) g/dl Hct (34.1-44.9) % MCV (80.0-100.0) fL MCH (25.0-34.0) pg MCHC (32.0-36.0) g/dL RDW Std Deviation (36.4-46.3) fL RDW Coeff of Soy (11.5-14.5) % Plt Count (130-400) K/uL MPV (9.4-12.3) fL Immature Gran % (Auto) % Neut % (Auto) % Lymph % (Auto) % [place] % (Auto) % Eos % (Auto) % Baso % (Auto) % Neut # (Auto) (1.4-6.5) K/uL Lymph # (Auto) (1.2-3.4) K/uL [place] # (Auto) (0.24-0.82) K/uL Eos # (Auto) (0-0.50) K/uL Baso # (Auto) (0-0.2) K/uL Immature Gran # (Auto) (0.00-0.02) K/uL Sodium Cancelled Potassium Cancelled Chloride Cancelled Carbon Dioxide Cancelled Anion Gap Cancelled BUN Cancelled Creatinine Cancelled Est Cr Clr Drug Dosing Cancelled Est GFR ( Amer) Cancelled Est GFR (Non-Af Amer) Cancelled BUN/Creatinine Ratio Cancelled Glucose Cancelled Osmolality (280-300) mOsm/kg Calcium Cancelled Phosphorus (2.5-4.9) mg/dl Magnesium Cancelled Total Bilirubin Cancelled AST Cancelled ALT Cancelled Alkaline Phosphatase Cancelled Troponin I High Sens Cancelled Total Protein Cancelled Albumin Cancelled Globulin Cancelled Albumin/Globulin Ratio Cancelled Lipase Cancelled TSH 1.291 Cancelled SARS-CoV-2, RNA, NAAT (NEGATIVE) 09/12/21 Range/Units 16:40 WBC 5.52 (4.8-10.8) K/ul RBC 4.17 (3.93-5.22) M/uL Hgb 12.7 (12.0-16.0) g/dl Hct 38.0 (34.1-44.9) % MCV 91.1 (80.0-100.0) fL MCH 30.5 (25.0-34.0) pg MCHC 33.4 (32.0-36.0) g/dL RDW Std Deviation 41.0 (36.4-46.3) fL RDW Coeff of Soy 12.2 (11.5-14.5) % Plt Count 149 (130-400) K/uL MPV 11.6 (9.4-12.3) fL Immature Gran % (Auto) 0.2 % Neut % (Auto) 60.0 % Lymph % (Auto) 32.4 % [place] % (Auto) 5.4 % Eos % (Auto) 1.3 % Baso % (Auto) 0.7 % Neut # (Auto) 3.31 (1.4-6.5) K/uL Lymph # (Auto) 1.79 (1.2-3.4) K/uL [place] # (Auto) 0.30 (0.24-0.82) K/uL Eos # (Auto) 0.07 (0-0.50) K/uL Baso # (Auto) 0.04 (0-0.2) K/uL Immature Gran # (Auto) 0.01 (0.00-0.02) K/uL Sodium Potassium Chloride Carbon Dioxide Anion Gap BUN Creatinine Est Cr Clr Drug Dosing Est GFR ( Amer) Est GFR (Non-Af Amer) BUN/Creatinine Ratio Glucose Osmolality (280-300) mOsm/kg Calcium Phosphorus (2.5-4.9) mg/dl Magnesium Total Bilirubin AST ALT Alkaline Phosphatase Troponin I High Sens Total Protein Albumin Globulin Albumin/Globulin Ratio Lipase TSH SARS-CoV-2, RNA, NAAT (NEGATIVE)
--- NOTE | 2021-09-13 12:38 | Electrocardiogram Report ---
Test Reason : Blood Pressure : / mmHG Vent. Rate : 064 BPM Atrial Rate : 064 BPM P-R Int : 140 ms QRS Dur : 092 ms QT Int : 416 ms P-R-T Axes : 028 -21 096 degrees QTc Int : 429 ms Normal sinus rhythm Leftward axis Septal infarct (cited on or before 12-SEP-2021) Abnormal ECG When compared with ECG of 01-DEC-2020 02:47, No significant change was found Confirmed by Felipe Sanchez ([id number]) on 09/13/2021 12:38:39 PM Referred By: REFERRED SELF Confirmed By:Felipe Sanchez
[2021-09-13 17:49] LABS: BUN Creatinine Ratio 18.4 (10-20); Creatinine Clr Calc Pharmacy 27.9 ml/min; Est GFR (African American) 55.8 ml/min; Est GFR (Non-African American) 48.2 ml/min; Potassium 4.8 mmol/L (3.5-5.1)
--- NOTE | 2021-09-13 18:50 | Billing Data ---
Date of Service September 13, 2021 Coding Level of Care Code 52871 Subseq Hosp Care Lvl 2
[2021-09-13] MEDS: rOPINIRole HCL 1 MG TABLET PO PRN (20:29)
--- NOTE | 2021-09-14 06:47 | Hospitalist Progress Note ---
Date of Service September 14, 2021 Assessment & Plan (1) Dysphagia: (2) Hyponatremia: (3) Benign essential hypertension: (4) CKD (chronic kidney disease) stage 3, GFR 30-59 ml/min: (5) Restless legs syndrome: (6) Depression: (7) GERD without esophagitis: (8) Essential tremor: Plan Hui Ybarra is an 89 y/o female with history of HTN, CKD, GERD, Depression and CHF presenting with 2-3 months of progressive dysphagia, clinically stable awaiting EGD. #Dysphagia 89yo female presents with 2-3 months of progressive dysphagia without odynophagia. Patient reports needing to drink multiple glasses of water with her meal to assist with swallowing. She denies oral lesions or thrush - she is on inhaled Advair. Uncertain about weight loss. She has history of GERD for which she takes PRN Nexium and Dexlansoprazole. GI consult, appreciate recs - EGD GI unable to do EGD today due to unit availability. Patient would like to go home. They recommended po PPI BID and outpatient scope. We did a trial of a regular diet to evaluate for aspiration risk. If she is able to eat we will discharge her this afternoon. -Hoarseness was discussed with PCP during a visit on 07/19/21 - patient was referred to ENT at [facility] #Hyponatremia Na 127 on admission. Patient 131 today. Patient with low sodium in the past - typically 130's. Likely in the setting of carb heavy diet and poor po intake. No further workup necessary. #HTN Blood pressure adequately controlled at present, 135/85. Continued Amlodipine 5mg po daily; Losartan 50mg po daily #CKD 3 Renal function stable #Depression Stable on sertraline 50 mg QD #RLS Well-controlled with Ropinirole 1 mg qHS PRN #GERD Patient on Nexium PRN and Dexlansoprazole. Discharge with PPI BID. #Essential tremor Stable on Primidone 50mg po daily Admission and Anticipated Discharge Date Admission Date: September 12, 2021 Subjective The patient notes that the liquid diet she had last evening when well. She is anxious to return home to her pets. The patient denies any f/c/SOB/CP/abdominal pain. Review of Systems Review of Systems: See subjective/HPI Physical Exam Physical Exam: General: patient resting comfortably, NAD, non-toxic in appearance, AA&O x 4 Skin: warm, dry, intact, no rashes or lesions HEENT: NC/AT, PERRL, EOMI, anicteric sclera, conjunctiva without injection, external ear normal to inspection and nontender, nares patent, moist mucus membranes, poor dentition, trachea midline Heart: +S1/S2, regular, no m/r/g Lungs: equal air entry bilaterally, no rales/rhonchi/wheezes Abd: non distended Ext: warm, clinically well perfused, no clubbing/cyanosis or edema Neuro: nonfocal, patient AA&O x 4, speech intact, no facial droop, moving all extremities Constitutional: WD/WN, vitals as above Respiratory: normal respiratory effort, lungs clear to auscultation Cardiovascular: Rate/Rhythm: regular rate and regular rhythm Gastrointestinal (Abdomen): normal bowel sounds, soft, nontender, no hepatosplenomegaly Skin: no rashes, warm and dry Results & Data Results & Data ([facility]) Vital Signs (Past 12 Hours) Vital Signs Temp Pulse Resp BP Pulse Ox O2 Del Method 09/13/21 22:48 36.9 C 60 16 118/61 93 Room Air Laboratory Results 09/14/21 09/14/21 09/14/21 Range/Units 09:56 07:48 07:48 WBC 4.91 (4.8-10.8) K/ul RBC 3.90 L (3.93-5.22) M/uL Hgb 11.7 L (12.0-16.0) g/dl Hct 35.0 (34.1-44.9) % MCV 89.7 (80.0-100.0) fL MCH 30.0 (25.0-34.0) pg MCHC 33.4 (32.0-36.0) g/dL RDW Std Deviation 40.3 (36.4-46.3) fL RDW Coeff of Soy 12.3 (11.5-14.5) % Plt Count 163 (130-400) K/uL MPV 11.7 (9.4-12.3) fL Sodium 131 L (136-145) mmol/L Potassium 4.6 TNP (3.5-5.1) mmol/L Chloride 101 (98-107) mmol/L Carbon Dioxide 26 (21-32) mmol/L Anion Gap 4 (3-11) BUN 16 (6-23) mg/dl Creatinine 1.00 (0.6-1.2) mg/dl Est Cr Clr Drug Dosing 28.8 ml/min Est GFR ( Amer) 57.8 ml/min Est GFR (Non-Af Amer) 49.9 ml/min BUN/Creatinine Ratio 16.0 (10-20) Glucose 78 (70-99(Fasting)) mg/dl Calcium 9.0 (8.5-10.1) mg/dl Magnesium 1.7 (1.7-2.4) mg/dl 09/13/21 Range/Units 17:17 WBC (4.8-10.8) K/ul RBC (3.93-5.22) M/uL Hgb (12.0-16.0) g/dl Hct (34.1-44.9) % MCV (80.0-100.0) fL MCH (25.0-34.0) pg MCHC (32.0-36.0) g/dL RDW Std Deviation (36.4-46.3) fL RDW Coeff of Soy (11.5-14.5) % Plt Count (130-400) K/uL MPV (9.4-12.3) fL Sodium 131 L (136-145) mmol/L Potassium 4.8 (3.5-5.1) mmol/L Chloride 104 (98-107) mmol/L Carbon Dioxide 23 (21-32) mmol/L Anion Gap 4 (3-11) BUN 19 (6-23) mg/dl Creatinine 1.03 (0.6-1.2) mg/dl Est Cr Clr Drug Dosing 27.9 ml/min Est GFR ( Amer) 55.8 ml/min Est GFR (Non-Af Amer) 48.2 ml/min BUN/Creatinine Ratio 18.4 (10-20) Glucose 144 H (70-99(Fasting)) mg/dl Calcium 9.0 (8.5-10.1) mg/dl Magnesium (1.7-2.4) mg/dl
[2021-09-14] MEDS: oxyCODONE/APAP 7.5/325MG TAB PO PRN ×2 (07:09→16:09)
[2021-09-14] MEDS: amLODIPine BESYLATE 5 MG TAB PO SCH (08:14)
[2021-09-14] MEDS: rOPINIRole HCL 1 MG TABLET PO PRN (08:14)
[2021-09-14] MEDS: LOSARTAN POTASSIUM 50 MG TAB PO SCH (08:14)
[2021-09-14] MEDS: SERTRALINE HCL 50 MG TABLET PO SCH (08:14)
[2021-09-14] MEDS: FLUTICASONE/VILANTEROL 200/25MCG 14 PUFFS/INHALER INH SCH (08:14)
[2021-09-14] MEDS: PRIMIDONE 50 MG TAB PO SCH (08:14)
[2021-09-14 08:56] LABS: Hemoglobin 11.7 g/dl (12.0-16.0); Mean Corpuscular Hgb Conc 33.4 g/dL (32.0-36.0); Mean Corpuscular Volume 89.7 fL (80.0-100.0); Mean Platelet Volume 11.7 fL (9.4-12.3); Platelet Count 163 K/uL (130-400); RDW Coefficient of Variation 12.3 % (11.5-14.5); RDW Standard Deviation 40.3 fL (36.4-46.3); White Blood Count 4.91 K/ul (4.8-10.8)
[2021-09-14 09:28] LABS: Anion Gap 4 (3-11); Blood Urea Nitrogen 16 mg/dl (6-23); Carbon Dioxide 26 mmol/L (21-32); Chloride 101 mmol/L (98-107); Creatinine Clr Calc Pharmacy 28.8 ml/min; Est GFR (African American) 57.8 ml/min; Est GFR (Non-African American) 49.9 ml/min; Glucose 78 mg/dl (70-99(Fasting)); Magnesium 1.7 mg/dl (1.7-2.4); Sodium 131 mmol/L (136-145)
--- NOTE | 2021-09-14 09:49 | Communication Note ---
Date of Service: September 14, 2021 Pt was seen and evaluated. Remains NPO for tentative EGD today pending endoscopy unit availability. Unfortunately there was not to take care of this patient's upper endoscopy in our unit at [facility] today. We are certainly happy to do the case as an inpatient tomorrow or as an outpatient over the next 1 to 2 weeks.
--- NOTE | 2021-09-14 14:26 | Anesthesiology Consultation ---
Date of Service September 14, 2021 Assessment & Plan (1) Encounter for pre-operative examination: Chart Review Chart Review: Acceptable Risk for Surgery, Patient NOT seen in Pre Admission Testing and entry level civil engineer initiated Consults Requested none History Surgery Operation Date: 09/14/21 16:00 Proposed Procedures p Esophagogastroduodenoscopy Dr Garo Wyman, Operation Date: 09/15/21 16:30 Proposed Procedures p Esophagogastroduodenoscopy Dr Garo Wyman, DO Height/Weight Height: 5 ft 1 in Weight: 56.2 kg Allergies Allergy/AdvReac Type Severity Reaction Status Date / Time erythromycin base Allergy Severe TONGUE Verified 09/12/21 17:15 SWELLS codeine Allergy Intermediate TONGUE Verified 09/12/21 17:15 SWELLS chlorpheniramine Allergy Mild UNKNOWN Verified 09/12/21 17:15 phenylephrine Allergy Mild UNKNOWN Verified 09/12/21 17:15 hydrocodone Allergy Unknown ON [facility] Verified 09/12/21 17:15 LIST Iodinated Contrast Media AdvReac Severe IRREGULAR Verified 09/12/21 17:15 HEART RATE topiramate [From Topamax] AdvReac Severe throat Verified 09/12/21 17:15 closing up Medications Home Medications Medication Instructions Recorded Confirmed Last Taken aspirin 81 mg tablet,delayed 81 mg PO DAILY 05/28/20 09/12/21 09/12/21 release nitroglycerin 0.4 mg sublingual 0.4 mg sublingual Q5M PRN chest 10/08/20 09/12/21 Unknown tablet (Nitrostat) pain #20 tabs docusate sodium 100 mg capsule 100 mg PO BID PRN Constipation 12/01/20 09/12/21 Unknown fluticasone 250 mcg-salmeterol 50 1 inh inhalation BID #60 ea 03/25/21 09/12/21 09/12/21 08:00 mcg/dose blistr powdr for inhalation (Advair Diskus) ropinirole 0.5 mg tablet 0.5 - 1 mg PO HS PRN restless legs 05/21/21 09/12/21 Unknown #60 tabs sertraline 50 mg tablet 50 mg PO DAILY #90 tabs 05/21/21 09/12/21 09/12/21 losartan 50 mg tablet 50 mg PO DAILY #90 tabs 06/15/21 09/12/21 09/12/21 acetaminophen 325 mg tablet 975 mg PO Q6H PRN Pain 07/02/21 09/12/21 Unknown dexlansoprazole 60 mg 60 mg PO DAILY PRN NEEDED PER PT 07/02/21 09/12/21 Unknown capsule,biphase delayed release (Dexilant) ondansetron HCl 4 mg tablet 4 mg PO Q8H PRN nausea 07/02/21 09/12/21 Unknown polyethylene glycol 3350 17 17 g PO DAILY PRN constipation 07/02/21 09/12/21 Unknown gram/dose oral powder (Miralax) primidone 50 mg tablet 50 mg PO DAILY 07/02/21 09/12/21 09/12/21 sulfamethoxazole 800 1 tab PO BID 7 days #14 tabs 09/08/21 09/12/21 09/12/21 08:00 mg-trimethoprim 160 mg tablet amlodipine 5 mg tablet 5 mg PO DAILY 09/12/21 09/12/21 09/12/21 carboxymethylcellulose sodium 1 % 1 drp ophthalmic (eye) TID PRN Dry 09/12/21 09/12/21 Unknown eye drops (Artificial Tears Eyes (carboxymethylcellulose)) esomeprazole magnesium 40 mg 40 mg PO DAILY PRN 09/12/21 09/12/21 Unknown capsule,delayed release (Nexium) INDIGESTION/HEARTBURN oxycodone-acetaminophen 7.5 mg-325 1 tab PO Q4H PRN pain 09/12/21 09/12/21 Unknown mg tablet (Percocet) Active Medications Generic Name Dose Route Start Last Admin Trade Name Freq PRN Reason Stop Dose Admin Acetaminophen 1,000 mg 09/13/21 03:51 09/13/21 20:29 Acetaminophen 500 Mg Tab PO 10/12/21 22:47 1,000 mg Q12H PRN Administration Pain Amlodipine Besylate 5 mg 09/13/21 09:00 09/14/21 08:14 Amlodipine Besylate 5 Mg Tab PO 10/13/21 08:59 5 mg DAILY MARISSA Administration Aspirin 81 mg 09/13/21 09:00 09/13/21 08:44 Aspirin 81 Mg Ectab PO 10/13/21 08:59 81 mg DAILY MARISSA Administration Docusate Sodium 100 mg 09/12/21 22:48 09/14/21 06:24 Docusate Sodium 100 Mg Cap PO 10/12/21 22:47 100 mg BID PRN Administration Constipation Fluticasone/Vilanterol 1 puffs 09/12/21 23:15 09/14/21 08:14 Fluticasone/Vilanterol 200/25mcg 14 Puffs/Inhaler INH 10/12/21 23:14 1 puffs DAILY MARISSA Administration Pantoprazole Sodium 40 mg/ 10 mls @ 5 mls/min 09/12/21 22:48 09/13/21 08:44 Syringe IV 10/12/21 22:47 5 mls/min BID MARISSA Administration Losartan Potassium 50 mg 09/13/21 09:00 09/14/21 08:14 Losartan Potassium 50 Mg Tab PO 10/13/21 08:59 50 mg DAILY MARISSA Administration Ondansetron HCl 4 mg 09/12/21 22:48 09/14/21 06:24 Ondansetron Inj 2 Mg/Ml 2 Ml Vial IV 10/12/21 22:47 4 mg Q6H PRN Administration Nausea Oxycodone/Acetaminophen 1 tab 09/12/21 22:48 09/14/21 07:09 Oxycodone/Apap 7.5/325mg Tab PO 09/26/21 22:47 1 tab Q4H PRN Administration pain Primidone 50 mg 09/13/21 09:00 09/14/21 08:14 Primidone 50 Mg Tab PO 10/13/21 08:59 50 mg DAILY MARISSA Administration Ropinirole HCl 1 mg 09/13/21 18:45 09/14/21 08:14 Ropinirole Hcl 1 Mg Tablet PO 10/13/21 18:44 1 mg DAILY PRN Administration RLS Sertraline HCl 50 mg 09/13/21 09:00 09/14/21 08:14 Sertraline Hcl 50 Mg Tablet PO 10/13/21 08:59 50 mg DAILY MARISSA Administration Past Medical History Medical History (Updated 09/14/21 @ 14:31 by Derian Leigh MD) Allergic rhinitis Asthma Benign essential hypertension CKD (chronic kidney disease) stage 3, GFR 30-59 ml/min Depression Diastolic heart failure Encounter for pre-operative examination Essential tremor Gait disorder GERD without esophagitis History of ovarian cancer Lumbar spinal stenosis Opiate dependence Osteoporosis Recurrent cystitis Restless legs syndrome Venous insufficiency Vitamin D deficiency Weight loss Past Family History Family History Mother Cardiovascular disease Hypertension Father Cardiovascular disease Hypertension Acute myocardial infarction Brother Hypertension Diabetes Son Hypertension Diabetes Daughter Hypertension Diabetes Unknown FHx: cancer Past Surgical History Surgical History History of appendectomy Hx of cholecystectomy S/P exploratory laparotomy S/P small bowel resection S/P total abdominal hysterectomy and bilateral salpingo-oophorectomy Social History Smoking Status: Former smoker tobacco type: cigarettes Do You Dip or Chew Tobacco: No Hx Alcohol Use: No Hx Substance Use: No Physical Exam Vital Signs Last Vital Signs Temp 36.6 C 09/14/21 07:21 Pulse 67 09/14/21 07:21 Resp 18 09/14/21 07:21 BP 166/72 H 09/14/21 07:21 Pulse Ox 95 09/14/21 07:21 O2 Del Method 09/14/21 07:30 Testing Laboratory Results 09/14/21 07:48 09/14/21 09:56 Electrocardiogram Date: 09/12/21 Test Reason : Blood Pressure : / mmHG Vent. Rate : 064 BPM Atrial Rate : 064 BPM P-R Int : 140 ms QRS Dur : 092 ms QT Int : 416 ms P-R-T Axes : 028 -21 096 degrees QTc Int : 429 ms Normal sinus rhythm Leftward axis Septal infarct (cited on or before 12-SEP-2021) Abnormal ECG When compared with ECG of 01-DEC-2020 02:47, No significant change was found Confirmed by Felipe Sanchez ([id number]) on 09/13/2021 12:38:39 PM Referred By: REFERRED SELF Confirmed By:Felipe Sanchez Chest X-Ray Date: 05/28/20 CLINICAL HISTORY: weakness COMPARISON STUDY: Chest radiograph October 14, 2013. FINDINGS: Incidental note is made of S-shaped scoliosis of the thoracolumbar spine as well as an anterior cervical spine fusion and elevation of the left hemidiaphragm. Patient is rotated. There is no pneumothorax or pleural effusion. There is no consolidation or evidence for pulmonary edema. IMPRESSION: 1. No acute cardiopulmonary findings. 2. Chronic elevation of the left hemidiaphragm. Rotated study. Echocardiogram Date: 08/04/20 EF: 45-49% Valvular Disease: + MR (mild) and + pertinent finding (small pericardial effusion, no tamponade)
--- NOTE | 2021-09-14 16:46 | Discharge Summary ---
Date of Service September 14, 2021 Admission HPI Per Admitting Provider Hui Ybarra is an 89yo female with history of HTN, CKD, GERD, Depressio and CHF presenting with 2-3 months of progressive dysphagia. Patient reports her appetite is intact. She is able to chew and swallow food but then she feels that it gets stuck in the upper portion of her throat. She reports having to drink multiple glasses of water with each meal to get her food down. She has occasional nausea with regurgitation of partially undigested food. She denies odynophagia. Denies ulcers, sores or thrush in her mouth or throat. She does report some hoarseness of her voice as well. Patient denies fever, chills, chest pain, cough, SOB. Denies abdominal pain, nausea or diarrhea. No additional complaints at this time. In the ER she is afebrile, HD stable. NAD. Labs as below, significant for hyponatremia with Qa=[id number] Patient has never had an EGD performed. She was seen at [facility] for this complaint several days ago and had negative x-rays of the neck. She was then sent home. ER course: Benadryl 12.5mg IV, Pepcid 20mg IV, Solumedrol 40mg IV Admission Exam Per Admitting Provider General: patient resting comfortably, NAD, non-toxic in appearance, AA&O x 4 Skin: warm, dry, intact, no rashes or lesions HEENT: NC/AT, PERRL, EOMI, anicteric sclera, conjunctiva without injection, external ear normal to inspection and nontender, nares patent, moist mucus membranes, poor dentition, no oropharyngeal lesions, neck supple, trachea midline, no LAD, no thyromegaly, no JVD Heart: +S1/S2, regular, no m/r/g Lungs: equal air entry bilaterally, no rales/rhonchi/wheezes Abd: +BS, soft, NT/ND, no masses/organomegaly/ascites Ext: warm, 2+ pulses in UE/LE bilaterally, no clubbing/cyanosis or edema Neuro: nonfocal, patient AA&O x 4, speech intact, no facial droop, moving all extremities on command with equal strength 5/5 Principal Diagnosis Dysphagia, Hyponatremia Discharge Exam General: patient resting comfortably, NAD, non-toxic in appearance, AA&O x 4 Skin: warm, dry, intact, no rashes or lesions HEENT: NC/AT, PERRL, EOMI, anicteric sclera, conjunctiva without injection, external ear normal to inspection and nontender, nares patent, moist mucus membranes, poor dentition, trachea midline Heart: +S1/S2, regular, no m/r/g Lungs: equal air entry bilaterally, no rales/rhonchi/wheezes Abd: non distended Ext: warm, clinically well perfused, no clubbing/cyanosis or edema Neuro: nonfocal, patient AA&O x 4, speech intact, no facial droop, moving all extremities Discharge Data Allergies Allergy/AdvReac Type Severity Reaction Status Date / Time erythromycin base Allergy Severe TONGUE Verified 09/12/21 17:15 SWELLS codeine Allergy Intermediate TONGUE Verified 09/12/21 17:15 SWELLS chlorpheniramine Allergy Mild UNKNOWN Verified 09/12/21 17:15 phenylephrine Allergy Mild UNKNOWN Verified 09/12/21 17:15 hydrocodone Allergy Unknown ON [facility] MED Verified 09/12/21 17:15 LIST Iodinated Contrast Media AdvReac Severe IRREGULAR Verified 09/12/21 17:15 HEART RATE topiramate [From Topamax] AdvReac Severe throat Verified 09/12/21 17:15 closing up Consultations 09/12/21 20:13 ED Decision to Admit Stat 09/12/21 22:48 Consult Gastroenterology Routine Procedures Performed Operation Date: 09/14/21 16:00 <No data on this case meets the specified criteria> Operation Date: 09/15/21 16:30 <No data on this case meets the specified criteria> Ordered Studies Soft Tissue Neck CT 09/12/21 16:32 CT SCAN OF THE NECK WITH IV CONTRAST CLINICAL HISTORY: Sore throat. Dysphagia. Dysphonia. COMPARISON STUDY: CT of the cervical spine dated 12/25/2011. Chest CT dated 12/27/2011. TECHNIQUE: Following the IV administration of 94 cc of Optiray 320, CT scan of the soft tissues of the neck was performed from the skull base to the upper chest. Images are reviewed in the axial, sagittal, and coronal planes. IV contrast was administered without complication. A dose lowering technique was utilized adhering to the principles of ALARA. CT DOSE: 228.85 mGy.cm FINDINGS: Pharynx: The pharyngeal soft tissues are grossly unremarkable. The pharyngeal airway is patent. There is no evidence of mass lesion. The vocal cords are symmetric. The parapharyngeal fat is well maintained. The prevertebral/retropharyngeal soft tissues are within normal limits. The epiglottis is normal. Lymphadenopathy: No cervical lymphadenopathy is seen Thyroid: Mildly enlarged and heterogeneous. Salivary glands: The parotid and submandibular glands are within normal limits. Brain parenchyma: The visualized brain parenchyma at the skull base is normal in appearance noting age-related involutional change. Vascular structures: There is atherosclerotic calcification of the thoracic aorta and carotid bulbs. The carotid arteries and jugular veins are patent bilaterally. Skeletal structures: The skeletal structures are osteopenic. Imaged portions of the calvarium at the skull base are within normal limits. The cervical spine appears intact noting advanced multilevel spondylosis. There is evidence of previous anterior cervical spinal fusion. No lytic or blastic lesion is seen. Degenerative change is noted in the shoulders evidence of previous surgery on the right. Orbits: The bony orbits are intact. Orbital contents are normal as visualized noting bilateral ocular lens implants. Sinuses and mastoids: Retention cysts in the maxillary antra and measure up to 2.3 cm. The remaining paranasal sinuses are clear. The mastoid air cells are we ll pneumatized. Lung apices: A 6 mm groundglass nodule is noted at the left apex image #[id number]. This was not seen in 2012. A 3 mm left upper lobe nodule on image #[id number] is unchanged dating back to 2012. The upper lobe lung parenchyma is otherwise clear as imaged. Dentition: There are no remaining maxillary teeth and presumed dentures are in place. Dental caries are noted throughout the remaining mandibular teeth. No periapical lucency is identified. IMPRESSION: 1. No acute abnormality is identified. 2. There is a 6 mm groundglass nodule at the left apex which was not clearly seen in 2012. This may be inflammatory. A 6 month follow-up chest CT is recommended for reassessment. 3. There are dental caries noted within the remaining mandibular teeth. Nonemergent follow-up with dentistry is recommended. ACT 112: Negative or not required by law. Electronically signed by: Andrez Carter M.D. 09/12/2021 7:10 PM Hospital Course (1) Dysphagia: (2) Hyponatremia: (3) Benign essential hypertension: (4) CKD (chronic kidney disease) stage 3, GFR 30-59 ml/min: (5) Restless legs syndrome: (6) Depression: (7) GERD without esophagitis: (8) Essential tremor: (9) Lung nodule seen on imaging study: Zack Hui Ybarra is an 89 y/o female with history of HTN, CKD, GERD, depression and CHF presenting with 2-3 months of progressive dysphagia, clinically stable ready for discharge with outpatient EGD follow-up. #Dysphagia 89yo female presents with 2-3 months of progressive dysphagia without odynophagia. Patient reports needing to drink multiple glasses of water with her meal to assist with swallowing. She denies oral lesions or thrush - she is on inhaled Advair. Uncertain about weight loss. She has history of GERD for which she takes PRN Nexium and Dexlansoprazole. GI consult, appreciate recs - EGD GI unable to do EGD today due to unit availability. Patient would like to go home. GI recommended po PPI BID - Nexium 20 mg BID and outpatient scope. We did a trial of a regular diet to evaluate for aspiration risk. If she is able to eat we will discharge her this afternoon. -Hoarseness was discussed with PCP during a visit on 07/19/21 - patient was referred to ENT at [facility] #Hyponatremia Na 127 on admission. Patient 131 today. Patient with low sodium in the past - ty pically 130's. Likely in the setting of carb heavy diet and poor po intake. No further workup necessary. #Lung nodule There is a 6 mm ground glass nodule at the left apex which was not clearly seen in 2012. This may be inflammatory. A 6 month follow-up chest CT is recommended for reassessment. #HTN Blood pressure adequately controlled at present, 135/85. Continued Amlodipine 5mg po daily; Losartan 50mg po daily #CKD 3 Renal function stable #Depression Stable on sertraline 50 mg QD #RLS Well-controlled with Ropinirole 1 mg qHS PRN #GERD Patient on Nexium PRN and Dexlansoprazole. Discharge with PPI BID. #Essential tremor Stable on Primidone 50mg po daily Total Time Total Time Spent Total Time Spent (In Minutes): <30 Discharge Plan Discharge Items Patient Disposition: Home - Self-Care Reason For Visit: DYSPHAGIA, HYPONATREMIA Discharge Diagnosis: Dysphagia, Hyponatremia Activity: Per Instructions section Non-emergency contact: Primary Care Provider Call non-emergency contact if: you have any medication questions and your symptoms worsen Follow-up/Referrals: Juan Galloway MD [Primary Care Provider] - (hospital discharge follow up within 1 week) Hailey Valadez DO [Physician] - (outpatient EGD within 1 month ) Diet: Heart Healthy Diet Texture: Mechanical soft (ground) Addtl Attending Provider Instructions: You were seen here in the hospital for difficulty swallowing. GI recommended a scope, but was unable to find a slot for you during your hospital stay. Follow up with GI for outpatient endoscopy. A soft/moist consistency diet is recommended to reduce swallowing difficulty. You were also found to have low sodium. Stable at the time of discharge. Continue follow up with your PCP. No changes were made to your medication list. As per above, please see your PCP within 1 week for hospital discharge follow up and also see the GI doctor for endocopy. You will be contacted by the schedulers. Please call [phone] if you do not hear back from the gastroenterology group. Call your PCP if you experience worsening symptoms. Contact the emergency room if symptoms severe or if you develop difficulty breathing. Pending Studies at Discharge: No Stand-Alone Forms: My [facility] [employer], Smoking Cessation Medications and DC Order Prescriptions: Continued fluticasone propion-salmeterol [Advair Diskus] 250-50 mcg/dose blister with device 1 inh INH BID Qty: 60 2RF losartan 50 mg tablet 50 mg PO DAILY Qty: 90 3RF sulfamethoxazole-trimethoprim 800-160 mg tablet 1 tab PO BID 7 Days Qty: 14 0RF Rx Instructions: STARTED 09/08/21 FOR 7 DAYS. nitroglycerin [Nitrostat] 0.4 mg tablet, sublingual 0.4 mg sublingual Q5M PRN (Reason: chest pain) Qty: 20 1RF Rx Instructions: until response; do not exceed 3 doses per episode ropinirole 0.5 mg tablet 0.5 - 1 mg PO HS PRN (Reason: restless legs) Qty: 60 3RF sertraline 50 mg tablet 50 mg PO DAILY Qty: 90 3RF acetaminophen 325 mg tablet 975 mg PO Q6H PRN (Reason: Pain) ondansetron HCl 4 mg tablet 4 mg PO Q8H PRN (Reason: nausea ) polyethylene glycol 3350 [Miralax] 17 gram/dose powder 17 g PO DAILY PRN (Reason: constipation) primidone 50 mg tablet 50 mg PO DAILY Rx Instructions: pt reports taking daily aspirin 81 mg Tablet,Delayed Release (Dr/Ec) 81 mg PO DAILY Artificial Tears (cmc) 1 % Drops 1 drp OPHTHALMIC (EYE) TID PRN (Reason: Dry Eyes) amlodipine 5 mg tablet 5 mg PO DAILY Rx Instructions: TAKE ONE TABLET BY MOUTH ONCE DAILY oxycodone-acetaminophen [Percocet] 7.5-325 mg tablet 1 tab PO Q4H PRN (Reason: pain) docusate sodium 100 mg Capsule 100 mg PO BID PRN (Reason: Constipation) Changed esomeprazole magnesium [Nexium] 40 mg Capsule,Delayed Release(Dr/Ec) 20 mg PO BID Qty: 60 0RF Discontinued dexlansoprazole [Dexilant] 60 mg capsule,biphase delayed releas 60 mg PO DAILY PRN (Reason: NEEDED PER PT) Rx Instructions: patient reports takes as needed Discharge Orders: Discharge Order (Routine); Ordered 09/14/21 Ordered By: Maria Isabel Porter/Other Patient Handouts: ED Soft Diet Admission Data Admit Date/Time: 09/12/21 20:36 Attending Provider: Phil Morris Admit Provider: Tari Avendano Primary Care Provider: Juan Galloway Other Providers: Tari Avendano ; Domingo Hinkle Other Interventions: Discharge Summary Assessment (RN) Last Done: 09/14/21 16:59 Supervising Physician Co-Signing Physician Notes I personally examined the patient and verified all long points of history and exam, discussed case, and agree with decision making with Dr Garcia feeling OK, eating okay without feeling like food getting stuck. When discussing the situation of lack of endoscopic availability today, she preferred to go home and do this as an outpatientand therefore we gave her normal food and she tolerated it well, making it safe for her to go home. Discussed soft and moist foods, chewing thoroughly, close outpatient follow-up, etc. Patient expressed good understanding. vitals noted nad heent nc at mmm breathing unlabored no accessory muscles good effort skin no rashes no pallor or icterus neuro no focal deficits dysphagia - for EGD as outpatient. Safe/stable for home as above. otherwise as above Resident Activity Tracking Resident Involvement: Resident Care Provided Care Provided: Adult Hospital Medicine
--- NOTE | 2021-09-14 18:14 | Billing Data ---
Date of Service September 14, 2021 Coding Level of Care Code D/C DAY MANAGEMENT <30 MINS
== END 2021-09-14 18:21 | disposition home or self-care (01) | DRG 392 ==
LOC: ED 15:41 → INTOOBSV 20:36 → 3W 20:36 → SUATTDRO 20:36 → 3W 22:18